=== PATIENT | female | born 1980 | race Caucasian/White ===

== ENCOUNTER 2020-02-28 09:27 | Outpatient (REF) | payer OTHER, SELFPAY ==
[2020-02-28 10:13] LABS: MANUAL DIFF FLAG NO
[2020-02-28 10:34] LABS: Basophils Absolute Auto 0.1 X10*3/uL (0.0-0.2); Basophils Percent Auto 0.7 % (0-2); Eosinophils Absolute Auto 0.1 X10*3/uL (0.0-0.4); Eosinophils Percent Auto 1.5 % (0-4); Hematocrit 42.1 % (37-47); Hemoglobin 13.8 g/dl (12.0-16.0); Imm Gran Abs Auto 0.03 X10*3/uL (0.00-0.03); Imm Gran Pct Auto 0.4 % (0.0-0.4); Lymphocytes Absolute Auto 2.4 X10*3/uL (1.2-4.9); Lymphocytes Percent Auto 29.8 % (20-40); Mean Corpuscular HGB Conc 32.8 g/dl (31.0-35.0); Mean Corpuscular Hemoglobin 29.7 pg (27.0-33.0); Mean Corpuscular Volume 90.7 fL (80-98); Mean Platelet Volume 10.5 fL (9.4-12.3); Monocytes Absolute Auto 0.7 X10*3/uL (0.1-1.2); Monocytes Percent Auto 8.7 % (2-11); Neutrophils Absolute Auto 4.7 X10*3/uL (2.0-8.3); Neutrophils Percent Auto 58.9 % (45-73); Platelet Count 363 X10*3/uL (160-400); Red Blood Count 4.64 X10*6/uL (4.20-5.50); Red Cell Distribution Width 12.1 % (11.0-16.0)
[2020-02-28 11:17] LABS: C Reactive Protein 1.15 mg/dL (< or = 0.50); Rheumatoid Factor < 15.0 IU/mL (<15.0)
[2020-02-28 11:31] LABS: Erythrocyte Sedimentation Rate 11 MM/HR (0-20)
[2020-02-28 11:32] LABS: TSH reflex Free T4 1.56 mIU/mL (0.32-4.0)
[2020-03-01 13:42] LABS: Lyme Abs Screen <0.90 index
[2020-03-01 22:12] LABS: Anti Nuclear Antibody Screen POSITIVE (NEGATIVE); Anti Nuclear Antibody Titer 1:40 titer
== END 2020-02-28 09:28 | disposition home or self-care (01) ==
LOC: HO.LAB 09:27
PROVIDERS: Visit Provider Internal Medicine
DX: R79.82 Elevated C-reactive protein (CRP) (principal); M25.50 Pain in unspecified joint; R53.83 Other fatigue
CPT/HCPCS: 36415; 84443; 85025; 85652; 86038; 86039; 86140; 86431; 86618

== ENCOUNTER 2020-07-07 14:11 | Outpatient (REF) | payer OTHER, SELFPAY ==
[2020-07-07 15:20] LABS: MANUAL DIFF FLAG NO
[2020-07-07 15:26] LABS: Basophils Absolute Auto 0.1 X10*3/uL (0.0-0.2); Basophils Percent Auto 0.7 % (0-2); Eosinophils Absolute Auto 0.1 X10*3/uL (0.0-0.4); Eosinophils Percent Auto 1.2 % (0-4); Hematocrit 42.1 % (37-47); Hemoglobin 13.9 g/dl (12.0-16.0); Imm Gran Abs Auto 0.02 X10*3/uL (0.00-0.03); Imm Gran Pct Auto 0.2 % (0.0-0.4); Lymphocytes Absolute Auto 1.9 X10*3/uL (1.2-4.9); Lymphocytes Percent Auto 22.1 % (20-40); Mean Corpuscular Hemoglobin 29.7 pg (27.0-33.0); Mean Platelet Volume 10.1 fL (9.4-12.3); Monocytes Absolute Auto 0.8 X10*3/uL (0.1-1.2); Neutrophils Absolute Auto 5.8 X10*3/uL (2.0-8.3); Neutrophils Percent Auto 66.8 % (45-73); Platelet Count 429 X10*3/uL (160-400); Red Blood Count 4.68 X10*6/uL (4.20-5.50); Red Cell Distribution Width 12.4 % (11.0-16.0); White Blood Count 8.7 X10*3/uL (4.8-10.8)
[2020-07-07 15:51] LABS: Alanine Aminotransferase 38 U/L (0-31); Albumin Level 4.2 g/dL (3.5-5.0); Alkaline Phosphatase 88 U/L (39-117); Anion Gap 10 (12-20); Aspartate Amino Transferase 19 U/L (5-31); Bilirubin Total 0.3 mg/dL (0.0-1.0); Blood Urea Nitrogen 9 mg/dL (9-16); C Reactive Protein 1.06 mg/dL (< or = 0.50); Calcium 9.4 mg/dL (8.4-10.2); Carbon Dioxide 28 mmol/L (22-29); Chloride 103 mmol/L (96-108); Estimated Glomerular Filt Rate > 60; Glucose Random 103 mg/dL (60-115); Potassium 4.4 mmol/L (3.3-5.1); Rheumatoid Factor < 15.0 IU/mL (<15.0); Sodium 137 mmol/L (135-145); Total Protein 7.3 g/dL (6.5-8.0)
[2020-07-07 16:00] LABS: Erythrocyte Sedimentation Rate 12 MM/HR (0-20)
[2020-07-07 16:11] LABS: Thyroid Stimulating Hormone 1.42 uIU/mL (0.32-4.0)
[2020-07-08 05:17] LABS: Thyroglobulin Antibodies <1 IU/mL (< or = 1); Thyroid Peroxidase Antibodies 1 IU/mL (<9)
[2020-07-08 12:51] LABS: Complement C3 141 mg/dL (83-193)
[2020-07-08 13:36] LABS: Beta-2 Microglobulin, Serum 1.06 mg/L (< OR = 2.51)
[2020-07-08 14:02] LABS: Anti DNA DS Antibody <1 IU/mL; Antibody to SS-A Antigen <1.0 NEG AI (<1.0 NEG); Antibody to SS-B Antigen <1.0 NEG AI (<1.0 NEG); SM/Ribonucleoprotein Ab <1.0 NEG AI (<1.0 NEG); Scleroderma 70 Antibody <1.0 NEG AI (<1.0 NEG); Smith Protein <1.0 NEG AI (<1.0 NEG)
[2020-07-08 14:52] LABS: PTT (LAC) Screen 31 sec (< OR = 40)
[2020-07-08 15:36] LABS: Cyclic Citrullinated Peptide <16 UNITS
[2020-07-13 18:17] LABS: Cardiolipin IgG Ab <14 GPL; Cardiolipin IgM Ab <12 MPL
== END 2020-07-07 14:12 | disposition home or self-care (01) ==
LOC: HO.LAB 14:11
PROVIDERS: PCP Internal Medicine; Visit Provider Student in an Organized Health Care Education/Training Program
DX: R76.8 Other specified abnormal immunological findings in serum (principal); M25.50 Pain in unspecified joint
CPT/HCPCS: 36415; 80053; 82232; 84443; 85025; 85597; 85613; 85652; 85730; 86140; 86147; 86160; 86200; 86225; 86235; 86376; 86431; 86800

== ENCOUNTER 2020-07-13 16:20 | Outpatient (REF) | payer OTHER, SELFPAY ==
[2020-07-13 17:19] LABS: Glucose Urine UA NEG (NEG); Leukocyte Esterase Urine NEG (NEG); Nitrite Urine NEG (NEG); Specific Gravity - Urine 1.025 (1.005-1.025); Urine Blood NEG (NEG); Urine Ketones NEG (NEG); Urine Protein NEG (NEG-TRACE)
[2020-07-13 17:40] LABS: Appearance Urine CLEAR; Color Urine YELLOW
[2020-07-13 17:55] LABS: Bacteria Urine 1+ /LPF; Mucus Urine 2+ /LPF; Squamous Epithelial Cell Urine 1+ /LPF
== END 2020-07-13 16:21 | disposition home or self-care (01) ==
LOC: HO.LAB 16:20
PROVIDERS: PCP Internal Medicine; Visit Provider Student in an Organized Health Care Education/Training Program
DX: R76.8 Other specified abnormal immunological findings in serum (principal)
CPT/HCPCS: 81001

== ENCOUNTER → 2020-07-28 10:45 | Outpatient (BNVA) | payer OTHER, SELFPAY | PROVIDERS: Visit Provider Student in an Organized Health Care Education/Training Program ==

== ENCOUNTER 2021-07-02 14:53 | Emergency (ER) | payer OTHER, SELFPAY ==
[2021-07-02 15:02] VITALS: BP 141/100; PULSE 95; RESP 16; TEMP 36.9; O2SAT 98; BMI 25.6
[2021-07-02 15:57] LABS: MANUAL DIFF FLAG NO
[2021-07-02 15:58] LABS: Basophils Absolute Auto 0.1 X10*3/uL (0.0-0.2); Basophils Percent Auto 0.9 % (0-2); Eosinophils Absolute Auto 0.2 X10*3/uL (0.0-0.4); Eosinophils Percent Auto 2.6 % (0-4); Hemoglobin 11.9 g/dl (12.0-16.0); Imm Gran Abs Auto 0.03 X10*3/uL (0.00-0.03); Imm Gran Pct Auto 0.4 % (0.0-0.4); Lymphocytes Absolute Auto 2.1 X10*3/uL (1.2-4.9); Mean Corpuscular HGB Conc 32.2 g/dl (31.0-35.0); Mean Corpuscular Volume 90.2 fL (80.0-98.0); Monocytes Absolute Auto 0.9 X10*3/uL (0.1-1.2); Monocytes Percent Auto 11.8 % (2-11); Neutrophils Absolute Auto 4.3 x10*3/uL (2.0-8.3); Neutrophils Percent Auto 56.3 % (45-73); Platelet Count 327 X10*3/uL (160-400); Red Cell Distribution Width 12.6 % (11.0-16.0); White Blood Count 7.6 X10*3/uL (4.8-10.8)
--- NOTE | 2021-07-02 15:58 | ED.FEMALEGU ---
HPI - Female Genitourinary General Chief complaint: Urogenital-Female Stated complaint: vaginal issues Time Seen by Provider: 07/02/21 15:11 Source: patient Mode of arrival: ambulatory Limitations: no limitations History of Present Illness HPI Narrative: 41-year-old female previously healthy here with reports of vaginal bleeding since yesterday. Patient tells me she had some slight bleeding which chart yesterday. Today her bleeding was worse. Bleeding is heavy, bright red with clots. Patient is changing her pads every 1 hour. There is some pelvic discomfort with bleeding. No nausea, vomiting, chills, urinary symptoms. Patient tells me she discontinued oral control pills March. She is not currently sexually active. She reports no concern for STD exposure. She is not on any anticoagulation Related Data Home Medications Medication Instructions Recorded Confirmed norethindrone 1 mg-ethinyl 1 tab PO DAILY 02/27/20 02/25/21 estradiol 20 mcg (21)-iron 75 mg (7) tablet (Loestrin Fe 05/19 (28-Day)) magnesium 200 mg tablet 300 mg PO DAILY tab 09/29/20 02/25/21 Previous Rx's Medication Instructions Recorded quetiapine 25 mg tablet 25 mg PO BEDTIME 90 Days #90 tab 02/08/21 bupropion HCl 300 mg 24 hr tablet, 300 mg PO QAM #90 tab 04/19/21 extended release lorazepam 0.5 mg tablet 0.5 mg PO TID PRN 30 Days #90 tab 05/16/21 Allergies Allergy/AdvReac Type Severity Reaction Status Date / Time No Known Allergies Allergy Verified 02/25/21 00:02 [No Known Allergies*] Review of Systems Review of Systems: Yes all other systems are reviewed and are negative Constitutional: Constitutional: Reports no additional constitutional complaints, Denies body ache(s), Denies chills, Denies fever(s), Denies headache(s) and Denies weakness Eyes: Eyes: Reports no additional eye complaints and Denies change in vision ENT: Reports system reviewed and no additional complaints, except as documented, Denies dizziness, Denies headache(s), Denies nasal congestion, Denies nasal discharge and Denies neck pain Cardiovascular: Cardiovascular: Reports no additional cardiovascular complaints, Denies chest pain, Denies leg edema and Denies dyspnea Respiratory: Respiratory: Reports no additional respiratory complaints, Denies cough and Denies dyspnea Gastrointestinal: Gastrointestinal: Reports no additional gastrointestinal complaints, Denies abdominal pain, Denies diarrhea, Denies nausea and Denies vomiting Genitourinary: Genitourinary: Reports no additional female genitourinary complaints, Reports abnormal vaginal bleeding, Reports pelvic pain and Denies urinary incontinence Musculoskeletal: Musculoskeletal: Reports no additional musculoskeletal complaints, Denies back pain, Denies arthralgias, Denies joint swelling, Denies neck pain, Denies numbness and Denies tingling Integumentary/Breasts: Skin/Breast: Reports system reviewed and no additional complaints, except as docu and Denies rash Neurologic: Reports system reviewed and no additional complaints, except as documented, Denies Abnormal speech present, Denies dizziness, Denies headache(s), Denies numbness, Denies tingling and Denies weakness PMFSH Past Medical History Attestation statement: The following information was validated with the patient. Source: old records reviewed and nursing notes reviewed Medical History Anxiety Arthralgia Depression Elevated C-reactive protein (CRP) Fatigue Insomnia No history of diphtheria, pertussis, and tetanus (DPT) vaccination Overweight (BMI 25.0-29.9) Positive MARIAN (antinuclear antibody) Surgical History No significant past surgical history Family History Family History Father No problems noted. 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 Exam Vital Signs: Vital Signs: Last Vital Signs Temp 98.4 F 07/02/21 15:02 Pulse 95 07/02/21 15:02 Resp 16 07/02/21 15:02 BP 141/100 H 07/02/21 15:02 Pulse Ox 98 03/05/22 15:02 BMI result Body Mass Index 25.6 Const: General: cooperative, healthy appearing, comfortable and no acute distress Orientation/consciousness: patient oriented x3 Limitations: no limitations HENMT: Head: Yes normal to inspection Ears: hearing grossly normal bilaterally General nose exam: Normal external nose present Face and sinus: Yes normal facial exam Mouth: Normal oral and palatal mucosa present Throat: Yes posterior oropharynx normal Eyes: General: appearance normal, both eyes and all related structures Pupils: Equal, round and reactive pupils present Neck: Neck: Yes normal visual inspection Chest: Chest palpation & inspection: normal inspection of the chest Resp: Effort & Inspection: normal respiratory effort Auscultation: clear to auscultation bilaterally Cardio: Rate: regular rate Rhythm: regular rhythm Peripheral pulses: Peripheral pulses 2+ throughout GI: Inspection: Yes normal to inspection Palpation (GI): Soft to palpation and nontender Auscultation: normal bowel sounds : Other: Courtney galeana slight bleeding noted-no clots Speculum Exam - Vagina: normal appearance of the vagina Speculum Exam - Cervix: normal appearance of the cervix Bimanual exam- vagina & uterus: normal bimanual exam Bimanual Exam- Adnexa, other: normal adnexae Back/Spine/Pelvis: Thoracic/Lumbar Spine: thoracic and lumbar spine normal to inspection Skin: General skin exam: no rashes or lesions noted Neuro: General: patient oriented x3, no focal motor deficits and normal sensation to monofilament Cranial nerves: Yes Equal, round and reactive pupils present Cognition (Neuro): normal cognition Speech: No Abnormal speech present Gait exam (Neuro): Normal gait present Motor exam (neuro): 5/5 motor strength present throughout Extrem: General: Yes normal to inspection Course Course Course Narrative: 41-year-old female here with heavy vaginal bleeding with clots, changing 1 pad every 1 hour since this morning. Abdomen is soft and nontender. Will need labs, UA, pelvic exam. 1820-hemoglobin x2 stable. Pelvic exam shows a mild amount of bleeding with no obvious clots. Patient tells me her bleeding seems to be improved as she has been here in the emergency department. Will discharge home with follow-up with gynecology. Reviewed worrisome signs and symptoms of when to return to the emergency department. Comfortable discharge home. MDM - Female Genitourinary MDM Narrative Medical decision making narrative: Dysmenorrhea, metorrhagia, dysfunctional uterine bleeding, Medical Records Attestation: I reviewed the patient's medical records. Lab Data Attestation: I reviewed the patient's lab results. Result diagrams: 07/02/21 18:00 07/02/21 15:51 Labs: Lab Results 07/02/21 07/02/21 07/02/21 Range/Units 15:51 15:51 15:51 WBC 7.6 (4.8-10.8) X10*3/uL RBC 4.10 L (4.20-5.50) X10*6/uL Hgb 11.9 L (12.0-16.0) g/dl Hct 37.0 (37.0-47.0) % MCV 90.2 (80.0-98.0) fL MCH 29.0 (27.0-33.0) pg MCHC 32.2 (31.0-35.0) g/dl RDW 12.6 (11.0-16.0) % Plt Count 327 (160-400) X10*3/uL MPV 10.0 (9.4-12.3) fL Immature Gran % (Auto) 0.4 (0.0-0.4) % Neut % (Auto) 56.3 (45-73) % Lymph % (Auto) 28.0 (20-40) % [place] % (Auto) 11.8 H (2-11) % Eos % (Auto) 2.6 (0-4) % Baso % (Auto) 0.9 (0-2) % Lymph # (Auto) 2.1 (1.2-4.9) X10*3/uL [place] # (Auto) 0.9 (0.1-1.2) X10*3/uL Eos # (Auto) 0.2 (0.0-0.4) X10*3/uL Baso # (Auto) 0.1 (0.0-0.2) X10*3/uL Abs Immat Gran (auto) 0.03 (0.00-0.03) X10*3/uL Absolute Neuts (auto) 4.3 (2.0-8.3) x10*3/uL Absolute Nucleated RBC 0.000 (0.0-0.012) X10*3/uL Nucleated RBC % (auto) 0.0 (0.0-0.2) /100WBC PT 11.3 (9.9-13.0) SEC INR 1.0 (0.9-1.1) Sodium 140 (135-145) mmol/L Potassium 4.1 (3.3-5.1) mmol/L Chloride 109 H (96-108) mmol/L Carbon Dioxide 27 (22-29) mmol/L Anion Gap 8 L (12-20) BUN 10 (9-16) mg/dL Creatinine 0.81 (0.5-1.4) mg/dL Estim Creat Clear Calc 91.5 Estimated GFR > 60 Random Glucose 93 (60-115) mg/dL Calcium 8.9 (8.4-10.2) mg/dL Total Bilirubin < 0.2 (0.0-1.0) mg/dL Direct Bilirubin < 0.2 (0.0-0.5) mg/dL AST 12 (5-31) U/L ALT 12 (0-31) U/L Alkaline Phosphatase 73 (39-117) U/L Total Protein 6.4 L (6.5-8.0) g/dL Albumin 3.8 (3.5-5.0) g/dL Beta HCG, Quant mIU/mL Urine Color Urine Appearance Urine pH (5.0-8.0) Ur Specific [place] (1.005-1.025) Urine Protein (NEG-TRACE) MG/DL Urine Glucose (UA) (NEG) MG/DL Urine Ketones (NEG) MG/DL Urine Blood (NEG) Urine Nitrite (NEG) Ur Leukocyte Esterase (NEG) Urine RBC (0) /HPF Urine WBC (0-4) /HPF Ur Squamous Epith Cells /LPF Urine Bacteria /LPF Urine Test (NEGATIVE) 07/02/21 07/02/21 07/02/21 Range/Units 15:51 16:37 16:37 WBC (4.8-10.8) X10*3/uL RBC (4.20-5.50) X10*6/uL Hgb (12.0-16.0) g/dl Hct (37.0-47.0) % MCV (80.0-98.0) fL MCH (27.0-33.0) pg MCHC (31.0-35.0) g/dl RDW (11.0-16.0) % Plt Count (160-400) X10*3/uL MPV (9.4-12.3) fL Immature Gran % (Auto) (0.0-0.4) % Neut % (Auto) (45-73) % Lymph % (Auto) (20-40) % [place] % (Auto) (2-11) % Eos % (Auto) (0-4) % Baso % (Auto) (0-2) % Lymph # (Auto) (1.2-4.9) X10*3/uL [place] # (Auto) (0.1-1.2) X10*3/uL Eos # (Auto) (0.0-0.4) X10*3/uL Baso # (Auto) (0.0-0.2) X10*3/uL Abs Immat Gran (auto) (0.00-0.03) X10*3/uL Absolute Neuts (auto) (2.0-8.3) x10*3/uL Absolute Nucleated RBC (0.0-0.012) X10*3/uL Nucleated RBC % (auto) (0.0-0.2) /100WBC PT (9.9-13.0) SEC INR (0.9-1.1) Sodium (135-145) mmol/L Potassium (3.3-5.1) mmol/L Chloride (96-108) mmol/L Carbon Dioxide (22-29) mmol/L Anion Gap (12-20) BUN (9-16) mg/dL Creatinine (0.5-1.4) mg/dL Estim Creat Clear Calc Estimated GFR Random Glucose (60-115) mg/dL Calcium (8.4-10.2) mg/dL Total Bilirubin (0.0-1.0) mg/dL Direct Bilirubin (0.0-0.5) mg/dL AST (5-31) U/L ALT (0-31) U/L Alkaline Phosphatase (39-117) U/L Total Protein (6.5-8.0) g/dL Albumin (3.5-5.0) g/dL Beta HCG, Quant < 2 mIU/mL Urine Color YELLOW Urine Appearance HAZY Urine pH 6.5 (5.0-8.0) Ur Specific [place] 1.015 (1.005-1.025) Urine Protein TRACE (NEG-TRACE) MG/DL Urine Glucose (UA) NEG (NEG) MG/DL Urine Ketones NEG (NEG) MG/DL Urine Blood 3+ H (NEG) Urine Nitrite NEG (NEG) Ur Leukocyte Esterase NEG (NEG) Urine RBC 50-75 H (0) /HPF Urine WBC 0-2 (0-4) /HPF Ur Squamous Epith Cells TRACE /LPF Urine Bacteria NONE /LPF Urine Test NEGATIVE (NEGATIVE) 07/02/21 Range/Units 18:00 WBC 8.5 (4.8-10.8) X10*3/uL RBC 4.10 L (4.20-5.50) X10*6/uL Hgb 12.0 (12.0-16.0) g/dl Hct 37.1 (37.0-47.0) % MCV 90.5 (80.0-98.0) fL MCH 29.3 (27.0-33.0) pg MCHC 32.3 (31.0-35.0) g/dl RDW 12.5 (11.0-16.0) % Plt Count 322 (160-400) X10*3/uL MPV 9.9 (9.4-12.3) fL Immature Gran % (Auto) 0.2 (0.0-0.4) % Neut % (Auto) 53.3 (45-73) % Lymph % (Auto) 31.3 (20-40) % [place] % (Auto) 12.0 H (2-11) % Eos % (Auto) 2.5 (0-4) % Baso % (Auto) 0.7 (0-2) % Lymph # (Auto) 2.7 (1.2-4.9) X10*3/uL [place] # (Auto) 1.0 (0.1-1.2) X10*3/uL Eos # (Auto) 0.2 (0.0-0.4) X10*3/uL Baso # (Auto) 0.1 (0.0-0.2) X10*3/uL Abs Immat Gran (auto) 0.02 (0.00-0.03) X10*3/uL Absolute Neuts (auto) 4.5 (2.0-8.3) x10*3/uL Absolute Nucleated RBC 0.000 (0.0-0.012) X10*3/uL Nucleated RBC % (auto) 0.0 (0.0-0.2) /100WBC PT (9.9-13.0) SEC INR (0.9-1.1) Sodium (135-145) mmol/L Potassium (3.3-5.1) mmol/L Chloride (96-108) mmol/L Carbon Dioxide (22-29) mmol/L Anion Gap (12-20) BUN (9-16) mg/dL Creatinine (0.5-1.4) mg/dL Estim Creat Clear Calc Estimated GFR Random Glucose (60-115) mg/dL Calcium (8.4-10.2) mg/dL Total Bilirubin (0.0-1.0) mg/dL Direct Bilirubin (0.0-0.5) mg/dL AST (5-31) U/L ALT (0-31) U/L Alkaline Phosphatase (39-117) U/L Total Protein (6.5-8.0) g/dL Albumin (3.5-5.0) g/dL Beta HCG, Quant mIU/mL Urine Color Urine Appearance Urine pH (5.0-8.0) Ur Specific [place] (1.005-1.025) Urine Protein (NEG-TRACE) MG/DL Urine Glucose (UA) (NEG) MG/DL Urine Ketones (NEG) MG/DL Urine Blood (NEG) Urine Nitrite (NEG) Ur Leukocyte Esterase (NEG) Urine RBC (0) /HPF Urine WBC (0-4) /HPF Ur Squamous Epith Cells /LPF Urine Bacteria /LPF Urine Test (NEGATIVE) Discharge Plan Discharge Clinical Impression: Menorrhagia Patient Disposition: Home, Self-Care Instructions: Menorrhagia (ED) Additional Instructions: Return for severe bleeding, pain Follow-up with your staking technician Sunday Prescriptions: No Action bupropion HCl 300 mg tablet extended release 24 hr 300 mg PO QAM Qty: 90 0RF lorazepam 0.5 mg tablet 0.5 mg PO TID PRN (Reason: anxiety) 30 Days Qty: 90 0RF magnesium 200 mg tablet 300 mg PO DAILY 0RF norethindrone-e.estradiol-iron [Loestrin Fe 05/19 (28-Day)] 1 mg-20 mcg (21)/75 mg (7) tablet 1 tab PO DAILY 0RF quetiapine 25 mg tablet 25 mg PO BEDTIME 90 Days Qty: 90 3RF Interventions: ED Discharge Assessment Last Done: 07/02/21 18:20 Discharge Date/Time: 07/02/21 18:20
[2021-07-02 16:08] LABS: Prothrombin Time 11.3 SEC (9.9-13.0)
[2021-07-02 16:20] LABS: Alanine Aminotransferase 12 U/L (0-31); Albumin Level 3.8 g/dL (3.5-5.0); Alkaline Phosphatase 73 U/L (39-117); Anion Gap 8 (12-20); Aspartate Amino Transferase 12 U/L (5-31); Bilirubin Direct < 0.2 mg/dL (0.0-0.5); Bilirubin Total < 0.2 mg/dL (0.0-1.0); Blood Urea Nitrogen 10 mg/dL (9-16); Calcium 8.9 mg/dL (8.4-10.2); Carbon Dioxide 27 mmol/L (22-29); Chloride 109 mmol/L (96-108); Creatinine Clr Calc Pharmacy 91.5; Estimated Glomerular Filt Rate > 60; Glucose Random 93 mg/dL (60-115); HCG Quantitative < 2 mIU/mL; Potassium 4.1 mmol/L (3.3-5.1); Sodium 140 mmol/L (135-145); Total Protein 6.4 g/dL (6.5-8.0)
[2021-07-02 16:51] LABS: Appearance Urine HAZY; Color Urine YELLOW; Glucose Urine UA NEG (NEG); Leukocyte Esterase Urine NEG (NEG); Nitrite Urine NEG (NEG); PH 6.5 (5.0-8.0); Specific Gravity - Urine 1.015 (1.005-1.025); UACC Culture Trigger NO; Urine Blood 3+ (NEG); Urine Ketones NEG (NEG); Urine Protein TRACE MG/DL (NEG-TRACE)
[2021-07-02 16:56] LABS: UPreg QC Valid YES; Urine Pregnancy NEGATIVE (NEGATIVE)
[2021-07-02 17:07] LABS: RBC Urine 50-75 /HPF (0); Squamous Epithelial Cell Urine TRACE /LPF; WBC Urine 0-2 /HPF (0-4)
[2021-07-02 18:04] LABS: MANUAL DIFF FLAG NO
[2021-07-02 18:05] LABS: Basophils Absolute Auto 0.1 X10*3/uL (0.0-0.2); Basophils Percent Auto 0.7 % (0-2); Eosinophils Absolute Auto 0.2 X10*3/uL (0.0-0.4); Eosinophils Percent Auto 2.5 % (0-4); Hematocrit 37.1 % (37.0-47.0); Imm Gran Abs Auto 0.02 X10*3/uL (0.00-0.03); Imm Gran Pct Auto 0.2 % (0.0-0.4); Lymphocytes Absolute Auto 2.7 X10*3/uL (1.2-4.9); Lymphocytes Percent Auto 31.3 % (20-40); Mean Corpuscular HGB Conc 32.3 g/dl (31.0-35.0); Mean Corpuscular Hemoglobin 29.3 pg (27.0-33.0); Mean Corpuscular Volume 90.5 fL (80.0-98.0); Mean Platelet Volume 9.9 fL (9.4-12.3); Neutrophils Absolute Auto 4.5 x10*3/uL (2.0-8.3); Neutrophils Percent Auto 53.3 % (45-73); Platelet Count 322 X10*3/uL (160-400); Red Cell Distribution Width 12.5 % (11.0-16.0); White Blood Count 8.5 X10*3/uL (4.8-10.8)
== END 2021-07-02 18:20 | disposition home or self-care (01) ==
PROVIDERS: Nurse Practitioner Family; Emergency Provider Emergency Medicine Emergency Medical Services; PCP Internal Medicine
DX: N92.0 Excessive and frequent menstruation with regular cycle (principal); R10.2 Pelvic and perineal pain
CPT/HCPCS: 36415; 80048; 80076; 81001; 81025; 84702; 85025; 85610; 99284

== ENCOUNTER 2021-09-08 17:37 | Emergency (ER) | payer OTHER, SELFPAY | END 2021-09-08 22:20 | disposition left against medical advice (07) | PROVIDERS: Emergency Provider Emergency Medicine; PCP Internal Medicine | DX: R10.30 Lower abdominal pain, unspecified (principal) ==

== ENCOUNTER → 2022-02-10 13:50 | Outpatient (REF) | payer OTHER, SELFPAY ==
--- NOTE | 2022-02-10 14:00 | ECG_ITS ---
Test Reason : z01.818 Blood Pressure : / mmHG Vent. Rate : 080 BPM Atrial Rate : 080 BPM P-R Int : 150 ms QRS Dur : 082 ms QT Int : 396 ms P-R-T Axes : 066 078 063 degrees QTc Int : 456 ms Normal sinus rhythm with sinus arrhythmia Normal ECG When compared with ECG of 18-FEB-2019 02:07, No significant change was found Referred By: John Paul Foley Electronically Signed By:NITO BROOKS MD
[2022-02-10 14:01] LABS: MANUAL DIFF FLAG NO
[2022-02-10 14:28] LABS: Basophils Absolute Auto 0.1 X10*3/uL (0.0-0.2); Basophils Percent Auto 0.9 % (0-2); Eosinophils Absolute Auto 0.1 X10*3/uL (0.0-0.4); Eosinophils Percent Auto 1.7 % (0-4); Hematocrit 41.5 % (37.0-47.0); Hemoglobin 13.3 g/dl (12.0-16.0); Imm Gran Abs Auto 0.02 X10*3/uL (0.00-0.03); Imm Gran Pct Auto 0.3 % (0.0-0.4); Lymphocytes Absolute Auto 2.4 X10*3/uL (1.2-4.9); Lymphocytes Percent Auto 32.8 % (20-40); Mean Corpuscular Hemoglobin 28.1 pg (27.0-33.0); Mean Corpuscular Volume 87.7 fL (80.0-98.0); Mean Platelet Volume 10.1 fL (9.4-12.3); Monocytes Absolute Auto 0.8 X10*3/uL (0.1-1.2); Monocytes Percent Auto 10.4 % (2-11); Neutrophils Percent Auto 53.9 % (45-73); Platelet Count 394 X10*3/uL (160-400); Red Blood Count 4.73 X10*6/uL (4.20-5.50); Red Cell Distribution Width 13.1 % (11.0-16.0); White Blood Count 7.4 X10*3/uL (4.8-10.8)
[2022-02-10 14:54] LABS: Alanine Aminotransferase 16 U/L (0-31); Albumin Level 4.4 g/dL (3.5-5.0); Alkaline Phosphatase 71 U/L (39-117); Anion Gap 14 (12-20); Aspartate Amino Transferase 16 U/L (5-31); Bilirubin Total 0.3 mg/dL (0.0-1.0); Blood Urea Nitrogen 9 mg/dL (9-16); Calcium 9.3 mg/dL (8.4-10.2); Carbon Dioxide 28 mmol/L (22-29); Chloride 103 mmol/L (96-108); Estimated Glomerular Filt Rate 59; Glucose Random 80 mg/dL (60-115); Potassium 4.5 mmol/L (3.3-5.1); Sodium 140 mmol/L (135-145); Total Protein 7.5 g/dL (6.5-8.0)
== END ==
LOC: HO.CARD 13:50
PROVIDERS: PCP Internal Medicine; Visit Provider Internal Medicine
DX: Z01.818 Encounter for other preprocedural examination (principal); H50.9 Unspecified strabismus
CPT/HCPCS: 36415; 80053; 85025; 93005

== ENCOUNTER 2022-02-15 11:52 | Day surgery (SDC) | payer OTHER, SELFPAY ==
[2022-02-13 07:46] VITALS: BMI 25.7
--- NOTE | 2022-02-14 10:16 | HO.ANESPROP2 ---
Documented by User: Marianne Marx NP 02/14/22 10:17 HPI - Anesthesia Eval Consult details Narrative: 41yo F for Bilateral medial and Left inferior Eye Muscle rectus Resection PCP cleared [facility] Active Problems Active Problems: All Active Problems (Updated 02/10/22 @ 13:37 by John Paul Foley MD) Strabismus (Acute) Preoperative examination (Acute) Annual physical exam (Acute) Overweight (BMI 25.0-29.9) (Acute) Positive MARIAN (antinuclear antibody) (Acute) Elevated C-reactive protein (CRP) (Acute) Depression (Acute) Insomnia (Acute) Anxiety (Acute) Arthralgia (Acute) Fatigue (Acute) Past Medical History Medical History Anxiety Arthralgia Depression Elevated C-reactive protein (CRP) Fatigue Insomnia No history of diphtheria, pertussis, and tetanus (DPT) vaccination Overweight (BMI 25.0-29.9) Positive MARIAN (antinuclear antibody) Family History Family History Father No problems noted. Mother Chronic mental illness Family/Other FH: mental illness Other Mental health problem Surgical History Surgical History No significant past surgical history Social History Social History Housing: House Alcohol intake: current Alcohol intake frequency: holidays/special occasions only Patient Tobacco Use Status: Former Tobacco user Quit Date: 2015 Tobacco use type: Cigarette Second Hand Smoke Exposure: Yes Use of substances other than those prescribed or required for medical reasons: No Are you DNR?: No Advance Directives: No Advance Directives Information Provided: Yes service: No Current occupational status: employed 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 Rate : 080 BPM ? ? Atrial Rate : 080 BPM ?? P-R Int : 150 ms? QRS Dur : 082 ms ? ? QT Int : 396 ms ? ? ? P-R-T Axes : 066 078 063 degrees ?? QTc Int : 456 ms ? Normal sinus rhythm with sinus arrhythmia Normal ECG When compared with ECG of 18-FEB-2019 02:07, No significant change was found Assessment and Plan Assessment Anesthesia Assessment: Chart Reviewed Documented by User: Maddy Schwarz MD 02/15/22 15:04 PMFSH Past Medical History Medical History Anxiety Arthralgia Depression Elevated C-reactive protein (CRP) Fatigue Insomnia No history of diphtheria, pertussis, and tetanus (DPT) vaccination Overweight (BMI 25.0-29.9) Positive MARIAN (antinuclear antibody) Family History Family History Father No problems noted. Mother Chronic mental illness Family/Other FH: mental illness Other Mental health problem Family history of problems with anesthesia: No Surgical History Surgical History No significant past surgical history History of Problems with Anesthesia: No Social History Social History Housing: House Alcohol intake: current Alcohol intake frequency: holidays/special occasions only Patient Tobacco Use Status: Former Tobacco user Quit Date: 2015 Tobacco use type: Cigarette Second Hand Smoke Exposure: Yes Use of substances other than those prescribed or required for medical reasons: No Are you DNR?: No Advance Directives: No Advance Directives Information Provided: Yes service: No Current occupational status: employed 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 Cognitive needs: No Hearing needs: No Vision needs: Yes Meds Allergies Allergy/AdvReac Type Severity Reaction Status Date / Time No Known Allergies Allergy Verified 02/10/22 13:32 [No Known Allergies*] Home Medications Medication Instructions Recorded Confirmed Last Taken Type magnesium 200 mg tablet 300 mg PO DAILY 09/29/20 02/10/22 Unknown History Exam Airway Mallampati Class: II TM Dist: >3cm Neck ROM: Full Heart: rrr Lungs: cta Assessment and Plan Assessment Anesthesia Assessment: Anesthesia Plan Discussed and Chart Reviewed Final Anesthetic Review Family History of Problems with Anesthesia: No History of Problems with Anesthesia: No NPO: Yes ASA Class: II Final Preanesthetic Review: No Changes in Pt Med Stat, Meds/Allgs Chart Reviewed and Consent Obtained/Reviewed Patient Risk: Intermediate Procedure Risk: Intermediate Anesthetic Plan Anesthetic Plan: GA Disposition: Standard PACU
[2022-02-15] VITALS (7 sets, daily range): BP systolic 134–151; BP diastolic 84–102; PULSE 98–111; RESP 14–18; TEMP 36.1–36.6; O2SAT 97–100
[2022-02-15] MEDS: Lactated Ringers 1,000 ML 100 ML IVCONT (13:01)
[2022-02-15 13:07] LABS: UPreg QC Valid YES; Urine Pregnancy NEGATIVE (NEGATIVE)
--- NOTE | 2022-02-15 16:13 | HO.OPHTHAL ---
Ophthalmology Operative Note Date of Service: 02/15/22 Narrative: Diagnoses 1. Esotropia 2. Left hypotropia. Procedures 1. Bilateral medial rectus recessions of 6 mm 2. Recession of left inferior rectus [address] Soler anesthesia general complications none. The patient was brought to the operating room placed under general anesthesia. The patient's eyes were prepped and draped in the usual sterile ophthalmic fashion. A lid speculum was placed in the right eye and an incision was made at bare sclera in the inferior nasal fornix. The medial rectus muscle was hooked and secured with a double-armed Vicryl suture. The muscle was then disinserted the globe and reattached to a position 6 mm behind its original insertion using a hang back technique. Conjunctiva was closed with interrupted Vicryl suture sutures. An identical procedure was then performed on the left eye. The inferior rectus muscle on the left eye was then hooked and secured with a double-armed Vicryl suture. The muscle was then disinserted the globe and reattached to a position 3 mm behind its original insertion. Conjunctiva was closed with interrupted Vicryl sutures. The patient was then awoken from general anesthesia and discharged to postoperative recovery in good condition.
[2022-02-15] MEDS: ondansetron HCL 4 MG/2 ML VIAL IVPUSH (16:51)
[2022-02-15] MEDS: Tetracaine HCl/PF 0.5% Oph Sol 4 ML DROPS 1 DROP EYE-BOTH ×2 (16:51→17:34)
== END 2022-02-15 18:00 | disposition home or self-care (01) ==
PROVIDERS: Nurse Practitioner; PCP Internal Medicine; Visit Provider Ophthalmology
PROC: (CPT 67311; principal; 2022-02-15 13:40)
DX: H50.00 Unspecified esotropia (principal); H50.22 Vertical strabismus, left eye; H53.2 Diplopia; R79.82 Elevated C-reactive protein (CRP); R76.0 Raised antibody titer; E66.3 Overweight; Z68.25 Body mass index [BMI] 25.0-25.9, adult; F41.9 Anxiety disorder, unspecified; F32.9 Major depressive disorder, single episode, unspecified; Z79.899 Other long term (current) drug therapy; Z87.891 Personal history of nicotine dependence
CPT/HCPCS: 67311; 67314; 81025; J0131; J1100; J2250; J2405; J3010

== ENCOUNTER 2022-05-23 06:14 | Outpatient (REF) | payer OTHER, SELFPAY ==
[2022-05-23 06:18] LABS: MANUAL DIFF FLAG NO
[2022-05-23 07:32] LABS: Basophils Absolute Auto 0.1 X10*3/uL (0.0-0.2); Basophils Percent Auto 0.9 % (0-2); Eosinophils Absolute Auto 0.1 X10*3/uL (0.0-0.4); Eosinophils Percent Auto 1.6 % (0-4); Hematocrit 38.9 % (37.0-47.0); Hemoglobin 12.4 g/dl (12.0-16.0); Imm Gran Abs Auto 0.02 X10*3/uL (0.00-0.03); Imm Gran Pct Auto 0.2 % (0.0-0.4); Lymphocytes Absolute Auto 2.9 X10*3/uL (1.2-4.9); Lymphocytes Percent Auto 35.9 % (20-40); Mean Corpuscular HGB Conc 31.9 g/dl (31.0-35.0); Mean Corpuscular Volume 90.9 fL (80.0-98.0); Mean Platelet Volume 10.2 fL (9.4-12.3); Monocytes Absolute Auto 0.9 X10*3/uL (0.1-1.2); Monocytes Percent Auto 10.8 % (2-11); Neutrophils Absolute Auto 4.1 x10*3/uL (2.0-8.3); Neutrophils Percent Auto 50.6 % (45-73); Platelet Count 404 X10*3/uL (160-400); Red Blood Count 4.28 X10*6/uL (4.20-5.50); White Blood Count 8.2 X10*3/uL (4.8-10.8)
[2022-05-23 08:03] LABS: Alanine Aminotransferase 12 U/L (0-31); Albumin Level 3.9 g/dL (3.5-5.0); Alkaline Phosphatase 69 U/L (39-117); Anion Gap 12 (12-20); Aspartate Amino Transferase 11 U/L (5-31); Bilirubin Total 0.4 mg/dL (0.0-1.0); Blood Urea Nitrogen 8 mg/dL (9-16); Calcium 9.2 mg/dL (8.4-10.2); Carbon Dioxide 26 mmol/L (22-29); Chloride 105 mmol/L (96-108); Cholesterol 177 mg/dL; Estimated Glomerular Filt Rate > 60; Glucose Fasting 77 mg/dL (60-99); HDL Cholesterol 56 mg/dL; LDL Cholesterol Calculated 111 mg/dl; Potassium 4.4 mmol/L (3.3-5.1); Sodium 139 mmol/L (135-145); Total Protein 6.6 g/dL (6.5-8.0); Triglycerides 54 mg/dL
[2022-05-23 08:21] LABS: TSH reflex Free T4 3.29 uIU/mL (0.32-4.0); Vitamin D 25-OH Total 16.3 ng/mL (>30)
[2022-05-23 09:36] LABS: Appearance Urine Turbid; Color Urine Yellow; Glucose Urine UA Negative (Negative); Leukocyte Esterase Urine Moderate (2+) (Negative); Nitrite Urine Negative (Negative); PH 5.5 (5.0-9.0); UMIC TRIGGER UACC YES; Urine Blood Moderate (2+) (Negative); Urine Ketones Negative (Negative); Urine Protein 100 (2+) mg/dL (Neg-Trace)
[2022-05-23 09:53] LABS: Bacteria Urine 4+ (None Seen); Hyaline Casts Urine 0-2 /LPF (0-2); Squamous Epithelial Cell Urine >20 /HPF (0-2); UACC Culture Trigger YES; WBC Urine >50 /HPF (0-5)
== END 2022-05-23 06:15 | disposition home or self-care (01) ==
LOC: HO.LAB 06:14
PROVIDERS: PCP Internal Medicine; Visit Provider Internal Medicine
DX: Z00.00 Encounter for general adult medical examination without abnormal findings (principal); E55.9 Vitamin D deficiency, unspecified; R82.90 Unspecified abnormal findings in urine
CPT/HCPCS: 36415; 80053; 80061; 81001; 82306; 84443; 85025; 87086; 87088; 87186

== ENCOUNTER 2022-09-19 14:37 | Outpatient (REF) | payer OTHER, SELFPAY | END 2022-09-19 14:38 | disposition home or self-care (01) | LOC: HO.LAB 14:37 | PROVIDERS: Visit Provider Nurse Practitioner Family | DX: R30.0 Dysuria (principal) | CPT/HCPCS: 87086; 87088; 87147; 87186 ==

== ENCOUNTER → 2022-10-17 09:58 | Outpatient (BNVA) | payer OTHER, SELFPAY | PROVIDERS: PCP Internal Medicine; Visit Provider Nurse Practitioner Family | DX: N39.0 Urinary tract infection, site not specified (principal) | CPT/HCPCS: 51798 ==

== ENCOUNTER 2022-10-27 12:51 | Outpatient (REF) | payer OTHER, SELFPAY ==
--- NOTE | ~2022-10-27 | US_ITS ---
EXAMINATION: US RETROPERITONEAL COMPLETE (RENAL) CLINICAL INFORMATION: Urinary tract infection, site not specified. COMPARISON: None available. TECHNIQUE: Real-time imaging of the kidneys and bladder. FINDINGS: RIGHT KIDNEY: 11.5 x 3.7 x 5.2 cm (SAG x AP x TRV). No hydronephrosis. No renal calculi. Renal cortical thickness is normal. LEFT KIDNEY: 11.2 x 5.1 x 4.9 cm (SAG x AP x TRV). No hydronephrosis. No renal calculi. Renal cortical thickness is normal. Limited visualization due to bowel gas. BLADDER: Well distended. Unremarkable bladder. Bilateral ureteral jets are demonstrated. Prevoid bladder volume is 743 mL. Postvoid bladder volume is 87 mL. US/US retroperitoneal comp IMPRESSION: 1. No hydronephrosis. No renal calculi. 2. Postvoid bladder volume 87 mL.
== END 2022-10-27 12:52 | disposition home or self-care (01) ==
LOC: HO.HMGCX 12:51
PROVIDERS: PCP Internal Medicine; Visit Provider Nurse Practitioner Family
DX: N39.0 Urinary tract infection, site not specified (principal)
CPT/HCPCS: 76770

== ENCOUNTER 2022-11-13 11:04 | Outpatient (REF) | payer OTHER, SELFPAY ==
[2022-11-13 13:39] LABS: Appearance Urine Clear; Color Urine Dark Yellow; Glucose Urine UA Negative (Negative); Leukocyte Esterase Urine Moderate (2+) (Negative); Nitrite Urine Positive (Negative); Specific Gravity - Urine <= 1.005 (1.005-1.025); UMIC TRIGGER UACC YES; Urine Blood Negative (Negative); Urine Ketones Negative (Negative); Urine Protein Negative (Neg-Trace)
[2022-11-13 13:54] LABS: Bacteria Urine Trace (None Seen); Hyaline Casts Urine 0-2 /LPF (0-2); RBC Urine 0-2 /HPF (0-2); UACC Culture Trigger YES; WBC Urine 21-50 /HPF (0-5)
== END 2022-11-13 11:05 | disposition home or self-care (01) ==
LOC: HO.LAB 11:04
PROVIDERS: PCP Internal Medicine; Visit Provider Nurse Practitioner Family
DX: R30.0 Dysuria (principal)
CPT/HCPCS: 81001; 87086; 87088; 87186

== ENCOUNTER 2022-11-20 13:43 | Outpatient (AMB) | payer OTHER, SELFPAY ==
--- NOTE | 2022-11-20 13:50 | MHC.OFFVIS ---
Intake Intake Visit Reasons: 1m/US Intake Note: Patient presents for follow up visit recurrent uti/ultrasound (imaging 10/27) Urology Medications: none Blood Thinner: none PVR: 33ml's Area Secretary Required: No Accompanied by: Self / Same As Patient Allergies No Known Allergies [No Known Allergies*] Allergy (Verified 11/20/22 20:30) Medication List - Last Reconciled 11/20/22 by NICKI Elena ascorbic acid (vitamin C) 1 g PO DAILY 90 days bupropion HCl 300 mg PO QAM 90 days cholecalciferol (vitamin D3) 50 mcg PO DAILY cholecalciferol (vitamin D3) 50 mcg PO DAILY 90 days lorazepam 0.5 mg PO TID PRN 30 days methenamine hippurate 1 g PO DAILY 90 days quetiapine 25 mg PO BEDTIME 90 days HPI HPI Comments History of Present Illness Details Elyssa is a pleasant 42-year-old female patient of Dr. Foley. She has a past medical history of anxiety, depression, insomnia, positive MARIAN, and vitamin-D deficiency. She presents to the office today for follow-up. Of note, patient was seen approximately 1 month ago as a new patient for recurrent urinary tract infections at which time a retroperitoneal ultrasound was ordered for further assessment evaluation. These results were reviewed with the patient today. Bilateral kidneys with no calculi, lesions, and or hydronephrosis noted. The bladder is well distended and unremarkable. Bilateral ureteral jets are demonstrated. Pre void bladder volume is approximately 750 mL. Postvoid bladder volume is approximately 90 mL. Currently patient is completing last day of Bactrim for recent urinary tract infection. Urine culture obtain on 11/13 notable for Escherichia coli. Patient treated with full strength Bactrim b.i.d. which per culture is appropriate coverage. She currently denies any UTI like symptoms. In office urinalysis results with no leukocytes or nitrates however 3+ microscopic hematuria. However, patient reports recently undergoing /termination of . Discussed at length potential causes for recurrent urinary tract infections as well as microscopic hematuria. Discussed trial of suppression therapy with methenamine and vitamin-C verses low-dose antibiotic therapy. Discussed at length importance of bowel regimen. When asked patient reports to be drinking plenty of water daily. Discussed near future in office cystoscopy if recurrent UTIs persist. She otherwise denies any issues or concerns at this time. PVR 33 mL. [facility] Medical History Anxiety Arthralgia Depression Elevated C-reactive protein (CRP) Fatigue History of eye muscle disorder Insomnia No history of diphtheria, pertussis, and tetanus (DPT) vaccination Overweight (BMI 25.0-29.9) Positive MARIAN (antinuclear antibody) Vitamin D deficiency Surgical History No significant past surgical history Family History Father No problems noted. 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 Cognitive needs: No Hearing needs: No Vision needs: Yes (glasses) Review of Systems Const All systems reviewed & are unremarkable except as noted in HPI and below Reports as per HPI Eyes Reports no additional complaints ENT Reports no additional complaints Card Reports no additional complaints Resp Reports no additional complaints GI Reports no additional complaints Reports as per HPI Musc Reports no additional complaints Neuro Reports no additional complaints Psych Reports as per HPI Physical Exam Const General: cooperative, healthy appearing, comfortable, no acute distress, well developed, alert and awake Orientation/consciousness: patient oriented x3 Limitations: no limitations HEENT Head: Yes normal to inspection, Yes normocephalic and Yes atraumatic Ears: hearing grossly normal bilaterally Eyes General: appearance normal, both eyes and all related structures Neck Neck: Yes normal visual inspection and Yes trachea midline Chest Chest palpation & inspection: normal inspection of the chest Resp Effort & Inspection: normal respiratory effort and able to speak in complete sentences Cardio Rate: regular rate GI Inspection: Yes normal to inspection General: Yes no CVA tenderness Back/Spine/Pelvis Back: no CVA tenderness Skin General skin exam: no rashes or lesions noted Neuro General: patient oriented x3 Extrem General: Yes normal to inspection Psych Appearance: grossly normal and well kempt Mental Status: mental status grossly normal Speech and movement: Normal speech and movement present and Clear speech present Affect: normal affect Attitude: cooperative Thought process: Normal thought process present Thought content: Normal thought content present Insight: Good insight present (Psych) Judgement: Good judgement present (Psych) Office Procedures Post Void Residual Post Residual Void Post Void Residual (PVR): 33 73703-Bgke Void Residual by ultrasound Results AMB Urinalysis, Automated UA Leukoctes 0 Yasmin/uL Last Edit by [employer] on 11/20/22 14:14 UA Nitrite Negative Last Edit by [employer] on 11/20/22 14:14 UA Urobilinogen 0.2 mg/dL Last Edit by [employer] on 11/20/22 14:14 UA Protein 0 mg/dL Last Edit by [employer] on 11/20/22 14:14 UA pH 6.5 Last Edit by [employer] on 11/20/22 14:14 UA Blood 200 Sandoval/uL Last Edit by [employer] on 11/20/22 14:14 UA Specific [place] 1.015 Last Edit by [employer] on 11/20/22 14:14 UA Ketone Negative Last Edit by [employer] on 11/20/22 14:14 UA Bilirubin 0 mg/dL Last Edit by [employer] on 11/20/22 14:14 UA Glucose 0 mg/dL Last Edit by [employer] on 11/20/22 14:14 Results Reviewed Results Reviewed: Laboratory Last Values Urine pH (Auto) 6.5 11/20/22 13:53 Specific [place] (Auto) 1.015 11/20/22 13:53 Urine Protein (Auto) 0 mg/dL 11/20/22 13:53 Glucose (UA)(Auto) 0 mg/dL 11/20/22 13:53 Urine Ketones (Auto) Negative 11/20/22 13:53 Urine Blood (Auto) 200 Sandoval/uL 11/20/22 13:53 Urine Nitrite (Auto) Negative 11/20/22 13:53 Urine Bilirubin (Auto) 0 mg/dL 11/20/22 13:53 Urine Urobilinogen (Auto) 0.2 mg/dL 07/24/23 13:53 Leukocyte Esterase (Auto) 0 Yasmin/uL 11/20/22 13:53 Date of Service: 10/27/22 EXAMINATION: US RETROPERITONEAL COMPLETE (RENAL) FINDINGS: RIGHT KIDNEY: 11.5 x 3.7 x 5.2 cm (SAG x AP x TRV). No hydronephrosis. No renal calculi. Renal cortical thickness is normal. LEFT KIDNEY: 11.2 x 5.1 x 4.9 cm (SAG x AP x TRV). No hydronephrosis. No renal calculi. Renal cortical thickness is normal. Limited visualization due to bowel gas. BLADDER: Well distended. Unremarkable bladder. Bilateral ureteral jets are demonstrated. Prevoid bladder volume is 743 mL. Postvoid bladder volume is 87 mL. IMPRESSION: ? 1. No hydronephrosis. No renal calculi. ? Assessment & Plan Assessment & Plan (1) Incomplete bladder emptying: Code(s): R33.9 - Retention of urine, unspecified (2) Recurrent UTI: Code(s): N39.0 - Urinary tract infection, site not specified (3) Microhematuria: Code(s): R31.29 - Other microscopic hematuria Plan In office urinalysis results reviewed with the patient today. Discussed at length potential causes for recurrent urinary tract infections as well as microscopic hematuria. Start methenamine and vitamin-C as discussed and prescribed. Discussed near future in office cystoscopy if symptoms persist and/or worsen. Recent retroperitoneal ultrasound results reviewed with the patient today. Discussed UTI prevention with D mannose supplement, vitamin-C, increasing fluid intake, behavioral therapy with timed voiding, perineal hygiene and postcoital voiding, and management of constipation with stool softeners and increased fiber intake. Follow-up in 3 months if not sooner with any questions, concerns, and or issues. Orders: Orders AMB Urinalysis Automated Today Z13.9 - Encounter for screening, unspecified AMB Post Void Residual by ultrasound Today R39.14 - Feeling of incomplete bladder emptying Medications: New methenamine hippurate 1 g PO DAILY 90 days 90 tabs 1RF N39.0 - Urinary tract infection, site not specified ascorbic acid (vitamin C) 1 g PO DAILY 90 days 90 tabs 1RF N39.0 - Urinary tract infection, site not specified Patient Instructions: The patient had an opportunity to ask questions regarding the treatment plan. All questions were answered. Physical exam, labs, and imaging were discussed and reviewed in detail. As well as risks, benefits, and discussion of treatment choices. No major barriers to understanding were identified. The patient expressed understanding and agreement with the above treatment plan. The patient was made aware they should contact our office by phone for worsening of their current condition, the appearance of new symptoms, or with any questions or concerns. Compliance is encouraged with any medications and follow up testing that is ordered. It is a privilege to be allowed the opportunity to participate in? your urological care.? Again, if you have any questions or concerns If you have any questions or concerns please do not hesitate to contact me. The office is [phone]. This note is constructed using voice recognition software. While every effort has been made to ensure accuracy radiotelephone operator errors may have been included. Yours sincerely, YEE Elena- Coding Level of Care Code Est Pt Level 4 (29007) Diagnoses Incomplete bladder emptying R33.9 Recurrent UTI N39.0 Microhematuria R31.29 CPT Codes Post Residual Void - PVR CPT Code: 84358-Vkfu Void Residual by ultrasound ([id number])
== END 2022-11-20 14:23 | disposition home or self-care (01) ==
PROVIDERS: PCP Internal Medicine; Visit Provider Nurse Practitioner Family
DX: R33.9 Retention of urine, unspecified (principal); N39.0 Urinary tract infection, site not specified; R31.29 Other microscopic hematuria
CPT/HCPCS: 99214

== ENCOUNTER → 2022-11-20 13:43 | Outpatient (BNVA) | payer OTHER, SELFPAY | PROVIDERS: PCP Internal Medicine; Visit Provider Nurse Practitioner Family | DX: R33.9 Retention of urine, unspecified (principal); N39.0 Urinary tract infection, site not specified; R31.29 Other microscopic hematuria | CPT/HCPCS: 51798 ==

== ENCOUNTER 2022-11-27 14:22 | Emergency (ER) | payer OTHER, SELFPAY ==
--- NOTE | ~2022-11-27 | US_ITS ---
EXAMINATION: US PELVIS CLINICAL INFORMATION: Pelvic pain COMPARISON: None available. TECHNIQUE: Ultrasound of the pelvis is performed using both transabdominal and transvaginal transducers along with Doppler. Transvaginal imaging is performed due to inadequate visualization transabdominally. FINDINGS: Uterus: The uterus is anteverted and anteflexed and measures 10.0 x 4.0 x 5.1 cm. The double wall endometrial thickness cannot be measured as an IUD is present in the endometrial cavity in good position. There is a fluid collection seen in the endometrial canal measuring about 2.9 x 1.1 x 1.9 cm The uterus is smooth in contour and has normal myometrial echogenicity. No visible fibroid. Adnexa: Both ovaries are visualized. There is normal color flow to the adnexa. There is no evidence to suggest ovarian torsion. There is no pelvic ascites or fluid collection. Right ovary measures 3.1 x 1.5 x 1.5 cm for a volume of 3.6 mL and contains follicles. Left ovary measures 2.7 x 1.7 x 1.6 cm for a volume of 3.8 mL and contains follicles US/US pelvic and transvaginal IMPRESSION: There is a fluid collection in the endometrial canal which could represent a small amount of retained products if this patient had a history of . Please correlate with history and hCG levels. An IUD is present in the endometrial cavity in good position. A follow-up transabdominal and endovaginal ultrasound is recommended in one month's time.
--- NOTE | ~2022-11-27 | US_ITS ---
EXAMINATION: US PELVIS CLINICAL INFORMATION: Pelvic pain COMPARISON: None available. TECHNIQUE: Ultrasound of the pelvis is performed using both transabdominal and transvaginal transducers along with Doppler. Transvaginal imaging is performed due to inadequate visualization transabdominally. FINDINGS: Uterus: The uterus is anteverted and anteflexed and measures 10.0 x 4.0 x 5.1 cm. The double wall endometrial thickness cannot be measured as an IUD is present in the endometrial cavity in good position. There is a fluid collection seen in the endometrial canal measuring about 2.9 x 1.1 x 1.9 cm The uterus is smooth in contour and has normal myometrial echogenicity. No visible fibroid. Adnexa: Both ovaries are visualized. There is normal color flow to the adnexa. There is no evidence to suggest ovarian torsion. There is no pelvic ascites or fluid collection. Right ovary measures 3.1 x 1.5 x 1.5 cm for a volume of 3.6 mL and contains follicles. Left ovary measures 2.7 x 1.7 x 1.6 cm for a volume of 3.8 mL and contains follicles US/US pelvic ovarian doppler IMPRESSION: There is a fluid collection in the endometrial canal which could represent a small amount of retained products if this patient had a history of . Please correlate with history and hCG levels. An IUD is present in the endometrial cavity in good position. A follow-up transabdominal and endovaginal ultrasound is recommended in one month's time.
[2022-11-27 15:29] VITALS: BP 135/96; PULSE 69; RESP 18; TEMP 36.7; O2SAT 98; BMI 26.6
--- NOTE | 2022-11-27 15:29 | ED.GENADULT ---
HPI - General Adult General Chief complaint: Vaginal Bleeding Stated complaint: pain from IUD Related Data Home Medications ?Medication ?Instructions ?Recorded ?Confirmed cholecalciferol (vitamin D3) 50 50 mcg PO DAILY 10/23/22 05/25/23 mcg (2,000 unit) capsule norethindrone 1 mg-ethinyl 1 tab PO DAILY 05/24/23 05/25/23 estradiol 20 mcg (21)-iron 75 mg (7) tablet (June FE 05/19 (28)) Previous Rx's ?Medication ?Instructions ?Recorded quetiapine 25 mg tablet 25 mg PO BEDTIME 90 days #90 tabs 03/06/22 bupropion HCl 300 mg 24 hr tablet, 300 mg PO QAM 90 days #90 tabs 05/25/23 extended release albuterol sulfate 90 mcg/actuation 2 puff inhalation Q6H PRN 08/08/23 aerosol inhaler (Ventolin HFA) shortness of breath or wheezing 30 days #8.5 grams inhalational spacing device (Raymundo #1 ea 09/06/23 Aerosol Refugio Enhancer spacer) lorazepam 0.5 mg tablet 0.5 mg PO TID PRN anxiety 30 days 10/12/23 #90 tabs Allergies Allergy/AdvReac Type Severity Reaction Status Date / Time No Known Allergies Allergy Verified 05/25/23 16:00 [No Known Allergies*] [facility] Past Medical History Medical History History of eye muscle disorder Vitamin D deficiency Overweight (BMI 25.0-29.9) Positive MARIAN (antinuclear antibody) Elevated C-reactive protein (CRP) Depression Insomnia Anxiety Arthralgia Fatigue No history of diphtheria, pertussis, and tetanus (DPT) vaccination Surgical History No significant past surgical history Family History Family History Father No problems noted. 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 42-year-old female presents with pelvic pain for few weeks, patient reports she had an IUD placed (11/02) since then has been having severe pain. Also reports associated vaginal bleeding, not heavy per patient. Denies fevers, chills, nausea, vomiting. Will obtain ultrasound, urine Discharge Plan Discharge Clinical Impression: Eloped from emergency department Patient Disposition: Elopement Prescriptions: No Action quetiapine 25 mg tablet 25 mg PO BEDTIME 90 Days Qty: 90 3RF albuterol sulfate [Ventolin HFA] 90 mcg/actuation HFA aerosol inhaler 2 puff inhalation Q6H PRN (Reason: shortness of breath or wheezing) 30 Days Qty: 8.5 1RF (DME) Raymundo Aerosol [place]ugio Enhancer Spacer See Rx Instructions .Route Qty: 1 0RF Rx Instructions: As directed lorazepam 0.5 mg tablet 0.5 mg PO TID PRN (Reason: anxiety) 30 Days Qty: 90 0RF cholecalciferol (vitamin D3) 50 mcg (2,000 unit) capsule 50 mcg PO DAILY bupropion HCl 300 mg tablet extended release 24 hr 300 mg PO QAM 90 Days Qty: 90 1RF norethindrone-e.estradiol-iron [05/19 (28)] 1 mg-20 mcg (21)/75 mg (7) tablet 1 tab PO DAILY Interventions: ED Discharge Assessment Last Done: 11/27/22 22:06 Discharge Date/Time: 11/27/22 22:06 Print Language: Greek
== END 2022-11-27 22:06 | disposition left against medical advice (07) ==
PROVIDERS: Emergency Provider Internal Medicine; PCP Internal Medicine
DX: R10.2 Pelvic and perineal pain (principal); N93.9 Abnormal uterine and vaginal bleeding, unspecified; Z97.5 Presence of (intrauterine) contraceptive device
CPT/HCPCS: 76830; 76856; 93975; 99282; 99284

== ENCOUNTER 2023-01-15 15:52 | Outpatient (REF) | payer OTHER, SELFPAY ==
[2023-01-15 18:41] LABS: Appearance Urine Clear; Color Urine Yellow; Glucose Urine UA Negative (Negative); Leukocyte Esterase Urine Negative (Negative); Nitrite Urine Negative (Negative); UMIC TRIGGER UA YES; Urine Blood Moderate (2+) (Negative); Urine Ketones Negative (Negative); Urine Protein Negative (Neg-Trace)
[2023-01-15 19:54] LABS: Bacteria Urine None Seen (None Seen); Hyaline Casts Urine 0-2 /LPF (0-2); RBC Urine 0-2 /HPF (0-2); WBC Urine 0-5 /HPF (0-5)
== END 2023-01-15 15:53 | disposition home or self-care (01) ==
LOC: HO.LAB 15:52
PROVIDERS: PCP Internal Medicine; Visit Provider Nurse Practitioner Family
DX: N39.0 Urinary tract infection, site not specified (principal)
CPT/HCPCS: 81001; 87086

== ENCOUNTER 2023-02-19 14:35 | Outpatient (AMB) | payer OTHER, SELFPAY ==
--- NOTE | 2023-02-19 14:38 | A.OFFVIS_ITS ---
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 Foley. She has a past medical history of anxiety, depression, insomnia, positive MARIAN, and vitamin-D deficiency. She presents to the office today for follow-up of her recurrent UTI's. When asked patient reports to be doing and feeling well. She denies any current symptoms of a urinary tract infection. She reports having had UTI like symptoms early last month however urine culture noted Lactobacillus species. However, patient did have UTI 11/19--E coli at which time she was treated. Previous workup has included a retroperitoneal ultrasound noting bilateral kidneys with no calculi, lesions, and or hydronephrosis noted. The bladder is well distended and unremarkable. Bilateral ureteral jets are demonstrated. Pre void bladder volume is approximately 750 mL . Postvoid bladder volume is approximately 90 mL. Discussed at length potential causes for recurrent urinary tract infections as well as microscopic hematuria. Discussed trial of suppression therapy with low-dose antibiotic therapy as patient reports previously trying methenamine and vitamin-C with no improvement. However, discussed importance of giving medications time to become affective. In office urinalysis results reviewed with the patient today. PVR 0ml. When asked patient reports to be drinking plenty of water daily. Discussed near future in office cystoscopy if recurrent UTIs persist as well as microgen. Patient denies constipation. When asked she currently denies urinary urgency, urinary frequency, incontinence, nocturia, hematuria, dysuria, foul smelling urine, changes to urinary stream, flank pain, fever, and or chills.She is happy with her current voiding parameters. She otherwise denies any issues or concerns at this time. [facility] Medical History History of eye muscle disorder Vitamin D deficiency Overweight (BMI 25.0-29.9) Positive MARIAN (antinuclear antibody) Elevated C-reactive protein (CRP) Depression Insomnia Anxiety Arthralgia Fatigue No history of diphtheria, pertussis, and tetanus (DPT) vaccination Surgical History No significant past surgical history Family History Father No problems noted. 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 Cognitive needs: No Hearing needs: No Vision needs: Yes (glasses) Review of Systems Const All systems reviewed & are unremarkable except as noted in HPI and below Reports as per HPI Eyes Reports no additional complaints ENT Reports no additional complaints Card Reports no additional complaints Resp Reports no additional complaints GI Reports no additional complaints Reports as per HPI Musc Reports no additional complaints Neuro Reports no additional complaints Psych Reports as per HPI Physical Exam Const General: cooperative, healthy appearing, comfortable, no acute distress, well developed, alert and awake Orientation/consciousness: patient oriented x3 Limitations: no limitations HEENT Head: Yes normal to inspection, Yes normocephalic and Yes atraumatic Ears: hearing grossly normal bilaterally Eyes General: appearance normal, both eyes and all related structures Neck Neck: Yes normal visual inspection and Yes trachea midline Chest Chest palpation & inspection: normal inspection of the chest Resp Effort & Inspection: normal respiratory effort and able to speak in complete sentences Cardio Rate: regular rate GI Inspection: Yes normal to inspection General: Yes no CVA tenderness Back/Spine/Pelvis Back: no CVA tenderness Skin General skin exam: no rashes or lesions noted Neuro General: patient oriented x3 Extrem General: Yes normal to inspection Psych Appearance: grossly normal and well kempt Mental Status: mental status grossly normal Speech and movement: Normal speech and movement present and Clear speech present Affect: normal affect Attitude: cooperative Thought process: Normal thought process present Thought content: Normal thought content present Insight: Good insight present (Psych) Judgement: Good judgement present (Psych) Office Procedures Post Void Residual Post Residual Void Post Void Residual (PVR): 0 47448-[id number] Void Residual by ultrasound Results AMB Urinalysis, Automated UA Leukoctes 0 Yasmin/uL Last Edit by [employer] Drag[employer]urmeet Magana on 02/19/23 15:02 UA Nitrite Negative Last Edit by [employer] on 02/19/23 15:02 UA Urobilinogen 0.2 mg/dL Last Edit by [employer] on 02/19/23 15:02 UA Protein 0 mg/dL Last Edit by [employer] on 02/19/23 15:02 UA pH 6.5 Last Edit by [employer] on 02/19/23 15:02 UA Blood 200 Sandoval/uL Last Edit by [employer] on 02/19/23 15:02 UA Specific [place] 1.005 Last Edit by [employer] on 02/19/23 15:02 UA Ketone Negative Last Edit by [employer] on 02/19/23 15:02 UA Bilirubin 0 mg/dL Last Edit by [employer] on 02/19/23 15:02 UA Glucose 0 mg/dL Last Edit by [employer] on 02/19/23 15:02 Results Reviewed Results Reviewed: Laboratory Last Values Urine pH (Auto) 6.5 02/19/23 14:44 Specific [place] (Auto) 1.005 02/19/23 14:44 Urine Protein (Auto) 0 mg/dL 02/19/23 14:44 Glucose (UA)(Auto) 0 mg/dL 02/19/23 14:44 Urine Ketones (Auto) Negative 02/19/23 14:44 Urine Blood (Auto) 200 Sandoval/uL 02/19/23 14:44 Urine Nitrite (Auto) Negative 02/19/23 14:44 Urine Bilirubin (Auto) 0 mg/dL 02/19/23 14:44 Urine Urobilinogen (Auto) 0.2 mg/dL 02/19/23 14:44 Leukocyte Esterase (Auto) 0 Yasmin/uL 02/19/23 14:44 Assessment & Plan Assessment & Plan (1) Microhematuria: Code(s): R31.29 - Other microscopic hematuria (2) Recurrent UTI: Code(s): N39.0 - Urinary tract infection, site not specified Plan In office urinalysis results reviewed with the patient today. Start low-dose Bactrim as discussed and prescribed. Discussed UTI prevention with D mannose supplement, vitamin-C, increasing fluid intake, behavioral therapy with timed voiding, perineal hygiene and postcoital voiding, and management of constipation with stool softeners and increased fiber intake. She is happy with her current voiding parameters. Follow-up in 3 months with PVR; if not sooner with any issues, concerns, and or questions. Orders: Orders AMB Urinalysis Automated Today Z13.9 - Encounter for screening, unspecified AMB Post Void Residual by ultrasound Today N39.0 - Urinary tract infection, site not specified Medications: New sulfamethoxazole-trimethoprim 400-80 mg (Bactrim) 1 tab PO BEDTIME 90 days 90 tabs 0RF N39.0 - Urinary tract infection, site not specified Coding Level of Care Code Est Pt Level 4 (70067) Diagnoses Microhematuria R31.29 Recurrent UTI N39.0 CPT Codes Post Residual Void - PVR CPT Code: 04733-Mifz Void Residual by ultrasound ([id number])
== END 2023-02-19 15:17 | disposition home or self-care (01) ==
PROVIDERS: PCP Internal Medicine; Visit Provider Nurse Practitioner Family
DX: R31.29 Other microscopic hematuria (principal); N39.0 Urinary tract infection, site not specified
CPT/HCPCS: 99214

== ENCOUNTER → 2023-02-19 14:35 | Outpatient (BNVA) | payer OTHER, SELFPAY | PROVIDERS: PCP Internal Medicine; Visit Provider Nurse Practitioner Family | DX: R31.29 Other microscopic hematuria (principal); N39.0 Urinary tract infection, site not specified | CPT/HCPCS: 51798; 81003 ==

== ENCOUNTER 2023-03-29 12:18 | Outpatient (REF) | payer OTHER, SELFPAY ==
[2023-03-29 14:42] LABS: Appearance Urine Hazy; Color Urine Orange; Leukocyte Esterase Urine Negative (Negative); Specific Gravity - Urine <= 1.005 (1.005-1.025); UMIC TRIGGER UA YES; Urine Blood Negative (Negative); Urine Ketones Negative (Negative); Urine Protein 30 (1+) mg/dL (Neg-Trace)
[2023-03-29 14:44] LABS: Bacteria Urine None Seen (None Seen); Hyaline Casts Urine 0-2 /LPF (0-2); RBC Urine 0-2 /HPF (0-2); Squamous Epithelial Cell Urine 0-2 /HPF (0-2); WBC Urine 0-5 /HPF (0-5)
== END 2023-03-29 12:19 | disposition home or self-care (01) ==
LOC: HO.LAB 12:18
PROVIDERS: PCP Internal Medicine; Visit Provider Nurse Practitioner Family
DX: N39.0 Urinary tract infection, site not specified (principal)
CPT/HCPCS: 81001; 87086

== ENCOUNTER 2023-05-24 10:54 | Outpatient (AMB) | payer OTHER, SELFPAY ==
--- NOTE | 2023-05-24 11:26 | MHC.OFFVIS ---
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 Foley. She has a past medical history of anxiety, depression, insomnia, positive MARIAN, and vitamin-D deficiency. She presents to the office today for follow-up of her recurrent UTI's. When asked patient reports to be doing and feeling well. She denies any current symptoms of a urinary tract infection. She reports having stopped low dose suppression therapy as she felt she kept experiencing yeast infections. However, since her last office visit here approximately 3 months ago she denies having had or experienced any UTI like symptoms. In office urinalysis results reviewed with the patient today. PVR 26ml's. When asked she currently denies urinary urgency, urinary frequency, incontinence, nocturia, hematuria, dysuria, foul smelling urine, changes to urinary stream, flank pain, fever, and or chills. She is happy with her current voiding parameters. Previous workup has included a retroperitoneal ultrasound noting no hydronephrosis or renal calculi. The bladder is well distended and unremarkable. She otherwise denies any issues or concerns at this time. FORMERLY [facility] Medical History History of eye muscle disorder Vitamin D deficiency Overweight (BMI 25.0-29.9) Positive MARIAN (antinuclear antibody) Elevated C-reactive protein (CRP) Depression Insomnia Anxiety Arthralgia Fatigue No history of diphtheria, pertussis, and tetanus (DPT) vaccination Surgical History No significant past surgical history Family History Father No problems noted. 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 Cognitive needs: No Hearing needs: No Vision needs: Yes (glasses) Review of Systems Const All systems reviewed & are unremarkable except as noted in HPI and below Reports as per HPI Eyes Reports no additional complaints ENT Reports no additional complaints Card Reports no additional complaints Resp Reports no additional complaints GI Reports no additional complaints Reports as per HPI Musc Reports no additional complaints Neuro Reports no additional complaints Psych Reports as per HPI Physical Exam Const General: cooperative, healthy appearing, comfortable, no acute distress, well developed, alert and awake Orientation/consciousness: patient oriented x3 Limitations: no limitations HEENT Head: Yes normal to inspection, Yes normocephalic and Yes atraumatic Ears: hearing grossly normal bilaterally Eyes General: appearance normal, both eyes and all related structures Neck Neck: Yes normal visual inspection and Yes trachea midline Chest Chest palpation & inspection: normal inspection of the chest Resp Effort & Inspection: normal respiratory effort and able to speak in complete sentences Cardio Rate: regular rate GI Inspection: Yes normal to inspection General: Yes no CVA tenderness Back/Spine/Pelvis Back: no CVA tenderness Skin General skin exam: no rashes or lesions noted Neuro General: patient oriented x3 Extrem General: Yes normal to inspection Psych Appearance: grossly normal and well kempt Mental Status: mental status grossly normal Speech and movement: Normal speech and movement present and Clear speech present Affect: normal affect Attitude: cooperative Thought process: Normal thought process present Thought content: Normal thought content present Insight: Good insight present (Psych) Judgement: Good judgement present (Psych) Office Procedures Post Void Residual Post Residual Void Post Void Residual (PVR): 26 [id number] Void Residual by ultrasound Results AMB Urinalysis, Automated UA Leukoctes 0 Yasmin/uL Last Edit by Salvador Palenciass on 05/24/23 11:31 UA Nitrite Negative Last Edit by Maurizioyce Slimess on 05/24/23 11:31 UA Urobilinogen 0.2 mg/dL Last Edit by Maurizioycgurmeet Magana on 05/24/23 11:31 UA Protein 0 mg/dL Last Edit by Maurizioycgurmeet Magana on 05/24/23 11:31 UA pH 8.0 Last Edit by Maurizioyce Izzy on 05/24/23 11:31 UA Blood 0 Sandoval/uL Last Edit by Maurizioyce Izzy on 05/24/23 11:31 UA Specific [place] 1.010 Last Edit by Maurizioyce Izzy on 05/24/23 11:31 UA Ketone Negative Last Edit by Salvador Magana on 05/24/23 11:31 UA Bilirubin 0 mg/dL Last Edit by Salvador Magana on 05/24/23 11:31 UA Glucose 0 mg/dL Last Edit by Salvador Magana on 05/24/23 11:31 Results Reviewed Results Reviewed: Laboratory Last Values Urine pH (Auto) 8.0 05/24/23 11:29 Specific [place] (Auto) 1.010 05/24/23 11:29 Urine Protein (Auto) 0 mg/dL 05/24/23 11:29 Glucose (UA)(Auto) 0 mg/dL 05/24/23 11:29 Urine Ketones (Auto) Negative 05/24/23 11:29 Urine Blood (Auto) 0 Asndoval/uL 05/24/23 11:29 Urine Nitrite (Auto) Negative 05/24/23 11:29 Urine Bilirubin (Auto) 0 mg/dL 05/24/23 11:29 Urine Urobilinogen (Auto) 0.2 mg/dL 05/24/23 11:29 Leukocyte Esterase (Auto) 0 Yasmin/uL 05/24/23 11:29 Assessment & Plan Assessment & Plan (1) Microhematuria: Code(s): R31.29 - Other microscopic hematuria (2) Recurrent UTI: Code(s): N39.0 - Urinary tract infection, site not specified Plan In office urinalysis results reviewed with the patient today. Stop low-dose Bactrim Discussed UTI prevention with D mannose supplement, vitamin-C, increasing fluid intake, behavioral therapy with timed voiding, perineal hygiene and postcoital voiding, and management of constipation with stool softeners and increased fiber intake. She is happy with her current voiding parameters. Patient currently denies any bothersome urinary issues or concerns She denies any UTI like symptoms. Will continue with surveillance monitoring. Discussed possible near future in office cystoscopy if symptoms arise. Follow-up in 6 months with PVR; if not sooner with any issues, concerns, and or questions. Orders: Orders AMB Post Void Residual by ultrasound Today R33.9 - Retention of urine, unspecified AMB Urinalysis Automated Today Z13.9 - Encounter for screening, unspecified Patient Instructions: The patient had an opportunity to ask questions regarding the treatment plan. All questions were answered. Physical exam, labs, and imaging were discussed and reviewed in detail. As well as risks, benefits, and discussion of treatment choices. No major barriers to understanding were identified. The patient expressed understanding and agreement with the above treatment plan. The patient was made aware they should contact our office by phone for worsening of their current condition, the appearance of new symptoms, or with any questions or concerns. Compliance is encouraged with any medications and follow up testing that is ordered. It is a privilege to be allowed the opportunity to participate in? your urological care.? Again, if you have any questions or concerns If you have any questions or concerns please do not hesitate to contact me. The office is [phone]. This note is constructed using voice recognition software. While every effort has been made to ensure accuracy overlock sewing machine operator errors may have been included. Yours sincerely, NICKI Elena Coding Level of Care Code Est Pt Level 3 (53932) Diagnoses Microhematuria R31.29 Recurrent UTI N39.0 CPT Codes Post Residual Void - PVR CPT Code: 44480-Xztl Void Residual by ultrasound ([id number])
== END 2023-05-24 11:35 | disposition home or self-care (01) ==
PROVIDERS: PCP Internal Medicine; Visit Provider Nurse Practitioner Family
DX: R31.29 Other microscopic hematuria (principal); N39.0 Urinary tract infection, site not specified
CPT/HCPCS: 99213

== ENCOUNTER → 2023-05-24 10:54 | Outpatient (BNVA) | payer OTHER, SELFPAY | PROVIDERS: PCP Internal Medicine; Visit Provider Nurse Practitioner Family | DX: R31.29 Other microscopic hematuria (principal); N39.0 Urinary tract infection, site not specified | CPT/HCPCS: 51798; 81003 ==

== ENCOUNTER 2023-05-25 14:55 | Outpatient (AMB) | payer OTHER, SELFPAY ==
--- NOTE | 2023-05-25 15:07 | MHC.PC.OV ---
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 Accompanied by: Self / Same As Patient Allergies No Known Allergies [No Known Allergies*] Allergy (Verified 05/25/23 16:00) Medication List - Last Reconciled 05/25/23 by John Paul Foley MD bupropion HCl 300 mg PO QAM 90 days cholecalciferol (vitamin D3) 50 mcg PO DAILY lorazepam 0.5 mg PO TID PRN 30 days norethindrone-e.estradiol-iron 1 mg-20 mcg ()/75 mg () (05/19 ()) 1 tab PO DAILY quetiapine 25 mg PO BEDTIME 90 days Tobacco use date assessed: 05/25/23 Dental Screening Dental Screen Date: 05/25/23 Did you have a dental visit in the last 12 months?: Yes Did you have a dental problem in the last 6 months where you did not have access to dental care?: No Was dental information given to patient?: Patient has dentist HPI Annual Exam HPI Details Patient comes in today for her annual physical examination States that she feels okay She denies any headaches or dizziness Denies any chest pains, no shortness of breath No nausea/vomiting, no abdominal pain No change in bowel habits noted Denies any acute urinary symptoms Needs a couple of her Rx refilled - states that she would also like to get a refill on her Albuterol inhaler States that she does not have any asthma but has a history of smoking although she quit about 7-8 years ago; notes that she still occasionally needs to use the inhaler when her chest starts to feel tight States that she has not been able to get her previously ordered follow-up labs done yet and will try to get them done HAYLEE She is up-to-date on her annual gynecologic exam and Pap smear - [facility] Medical History History of eye muscle disorder Vitamin D deficiency Overweight (BMI 25.0-29.9) Positive MARIAN (antinuclear antibody) Elevated C-reactive protein (CRP) Depression Insomnia Anxiety Arthralgia Fatigue No history of diphtheria, pertussis, and tetanus (DPT) vaccination Surgical History No significant past surgical history Family History Father No problems noted. 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 1. Little interest or pleasure in doing things: not at all 2. Feeling down, depressed, or hopeless: not at all 3. Trouble falling or staying asleep, or sleeping too much: not at all 4. Feeling tired or having little energy: not at all 5. Poor appetite or overeating: not at all 6. Feeling bad about yourself - or that you are a failure or have let yourself or your family down: not at all 7. Trouble concentrating on things, such as reading the newspaper or watching television: not at all 8. Moving or speaking so slowly that other people could have noticed. Or the opposite - being so fidgety or restless that you have been moving around a lot more than usual: not at all 9. Thoughts that you would be better off or of hurting yourself in some way: not at all Total score: 0 Depression Screening Interpretation: Negative Depression Screening Done: Yes 44470 - PHQ-9 Billing: Yes Source: Developed by Drs. Leo Liang, Juliana Sharma, Anshu Pierre and colleagues, with an educational ernie from [employer]. Thrive Questionnaire Date Thrive assessed: 05/25/23 I am a: Patient What is your living situation today?: I have a steady place to live Within the past 12 months, did the food you bought not last and you didn't have the money to get more?: Never true Within the past 12 months, did you worry whether your food would run out before you got money to buy more?: Never true Do you have trouble paying for medicines?: No Do you have trouble getting transportation to medical appointments?: No Do you have trouble paying your heating and electricity bill?: No Do you have trouble taking care of your child, family member or friend?: No Do you have trouble with day-to-day activities such as bathing, preparing meals, shopping, managing finances, etc.?: No Are you currently unemployed and looking for a job?: No Are you interested in more education?: No Please select the resources that you would like help with: None Currently or been in a relationship where the following occur: no concerns reported THRIVE Score: 0 AUDIT C Alcohol Use Questionnaire (AUDIT-C) 1. How often do you have a drink containing alcohol?: Monthly or less 2. How many drinks containing alcohol do you have on a typical day when you are drinking?: 1 or 2 3. How often do you have six or more drinks on one occasion?: Never Total Score: 1 Score Reviewed/Action Taken: Yes STEPHANIE-7 AMB Questionnaire STEPHANIE-7 Date STEPHANIE - 7 assessed: 05/25/23 Feeling nervous, anxious, or on edge: 1 = Several days Not being able to stop or control worryin = Several days Worrying too much about different things: 1 = Several days Trouble relaxin = Several days Being so restless that it is hard to sit still: 1 = Several days Becoming easily annoyed or irritable: 1 = Several days Feeling afraid as if something awful might happen: 1 = Several days Total STEPHANIE-7 score (0-4 normal; 5-9 mild; 10-14 moderate; 15-21 severe): 7 Source: Developed by Drs. Leo Liang, Juliana Sharma, Anshu Pierre and colleagues, with an educational ernie from [employer]. STEPHANIE-7 Assessment Billing STEPHANIE-7 Assessment Tool: STEPHANIE-7 Assessment 55963 Review of Systems Const Denies chills, Denies fatigue, Denies fever(s), Denies headache(s) and Denies malaise Eyes Denies blurry vision, Denies change in vision, Denies irritation and Denies itchy eyes ENT Denies dysphagia, Denies dizziness, Denies otalgia, Denies headache(s), Denies nasal congestion, Denies neck pain, Denies odynophagia, Denies sinus pain and Denies sore throat Card Denies chest pain, Denies rapid heart rate, Denies irregular heart rhythm, Denies palpitations and Denies dyspnea Resp Denies chest congestion, Denies cough, Denies dyspnea and Denies wheezing GI Denies abdominal pain, Denies bloating, Denies constipation, Denies dysphagia, Denies heartburn, Denies diarrhea, Denies nausea, Denies odynophagia and Denies vomiting Denies hematuria, Denies urinary frequency, Denies dysuria, Denies urinary incontinence and Denies urinary urgency Musc Denies back pain, Denies arthralgias, Denies joint swelling, Denies muscle weakness and Denies neck pain Skin/Breast Denies breast pain, Denies breast mass, Denies change in pigmentation, Denies lesions, Denies rash and Denies unusual bruising Neuro Denies dizziness, Denies headache(s) and Denies paresthesias Psych Denies anxiety and Denies depression Endo Denies fatigue and Denies palpitations Obey/Lymph Denies easy bruising Aller/Immun Denies itchy eyes and Denies wheezing Physical exam (Primary Care) Vital Signs: Last Vital Signs Pulse 83 05/25/23 15:08 BP 128/80 05/25/23 15:08 Pulse Ox 98 05/25/23 15:08 Oxygen Delivery Method Room Air 05/25/23 15:08 BMI result Body Mass Index 29.1 Tobacco/Smoking Status: Tobacco use Status Tobacco use date assessed 05/25/23 05/25/23 15:15 Patient Tobacco Use Status Former Tobacco user 05/25/23 15:15 Tobacco use type Cigarette 05/25/23 15:15 e-Cigarette/Vaping Use Never Used 05/25/23 15:15 PHQ-9: PHQ-9 Score PHQ-9: Total score 0 05/25/23 16:04 Depression Screening Interpretation: Negative Thrive Assessment: Date of Thrive Assessment Date Thrive assessed 05/25/23 05/25/23 15:15 Currently or been in a relationship where the following occur: no concerns reported Const General: no acute distress, alert and awake Orientation/consciousness: patient oriented x3 HENMT Head: Yes normocephalic and Yes atraumatic Ears: external ears normal, TM's normal bilaterally and EAC's normal General nose exam: No nasal discharge present Face and sinus: Yes normal facial exam and Yes sinuses nontender Teeth and gingiva: dentition normal Throat: Yes posterior oropharynx normal and Yes tonsils normal (no TP congestion) Eyes Eyelids: Yes eyelids normal Conjunctivae: conjunctivae normal Pupils: Equal, round and reactive pupils present EOM: EOMs intact bilaterally Neck Neck: Yes no lymphadenopathy and Yes supple Thyroid: Thyroid normal Resp Auscultation: clear to auscultation bilaterally, no rales and no wheezes Cardio Rate: regular rate Rhythm: regular rhythm Heart sounds: no murmurs GI Palpation (GI): Soft to palpation, nontender and No hepatosplenomegaly present Auscultation: normal bowel sounds General: Yes no CVA tenderness Back/Spine/Pelvis Back: no CVA tenderness Thoracic/Lumbar Spine: thoracic and lumbar spine normal to inspection Skin Lesions: no lesions Rashes: no rashes Neuro General: patient oriented x3, moves all extremities, no focal motor deficits and CN's II-XI intact bilaterally Cranial nerves: Yes Equal, round and reactive pupils present Cognition (Neuro): normal cognition Gait exam (Neuro): Normal gait present Extrem General: Yes no clubbing, cyanosis or edema Assessment and Plan Assessment & Plan (1) Annual physical exam: Code(s): Z00.00 - Encounter for general adult medical examination without abnormal findings Plan: Check labs AHYLEE She is up-to-date with her annual gynecologic exam and pap smear - [facility] She is now due to start annual breast cancer screening (2) Elevated blood pressure reading: Code(s): R03.0 - Elevated blood-pressure reading, without diagnosis of hypertension Plan: Her blood pressure in the office today is normal at 128/80 Aside from her last visit, her blood pressure readings here in the office during all of her past few visits have been normal Reinforced low sodium diet Patient is instructed to continue monitoring her blood pressure periodically (3) Strabismus: Code(s): H50.9 - Unspecified strabismus Plan: S/P corrective eye muscle surgery of both eyes on 02/15/[address] Jimmie Soler - states that her vision and eye symptoms have all improved significantly with surgery (4) Vitamin D deficiency: Code(s): E55.9 - Vitamin D deficiency, unspecified Plan: Continue Vitamin D3 2000 units QD Will recheck her labs and Vitamin D level HAYLEE for follow up (5) Positive MARIAN (antinuclear antibody): Code(s): R76.8 - Other specified abnormal immunological findings in serum Plan: Has been seen and evaluated by rheumatology back in 2020 - all work ups were negative and patient does not have any signs or symptoms of active CTD or lupus Was advised to just see rheumatology again for follow up on an as needed basis (6) Ex-smoker: Code(s): Z87.891 - Personal history of nicotine dependence Plan: Per request, will refill her Albuterol HFA 1 to 2 inhalations Q 6 hours PRN Advised that if she continues to feel the need to use her Albuterol inhaler, then she may need to get further work ups done to check her for possible reactive airway disease or other possible pulmonary conditions (7) Anxiety: Code(s): F41.9 - Anxiety disorder, unspecified Plan: Continue Bupropion XL 300 mg QD and Lorazepam 0.5 mg TID PRN (Rx refilled) Patient feels that her anxiety is well-controlled on her current Rx although advised that if she still has to take her Lorazepam fairly regularly at 3 times a day on a daily basis, then her anxiety may not be as well-controlled as she thinks it is Discussed option of increasing her [place] XL further to 450 mg QD if her anxiety is still as issue - patient to call if she decides to go this route Continues to follow up with her therapist regularly (8) Depression: Code(s): F32.9 - Major depressive disorder, single episode, unspecified Qualifiers: Depression Type: unspecified Qualified Code(s): F32.9 - Major depressive disorder, single episode, unspecified Plan: Continue Bupropion XL 300 mg QD and Quetiapine 25 mg Q HS although she states that she hardly has had to take her Seroquel lately Follow up with her therapist regularly as scheduled? (9) Breast cancer screening by mammogram: Code(s): Z. - Encounter for screening mammogram for malignant neoplasm of breast Plan: Will send patient for annual mammogram - this will be her initial/baseline screen Plan Follow up in 6 months Orders: Orders MM tomosynthesis screening BI 05/25/23 Z12. - Encounter for screening mammogram for malignant neoplasm of breast Medications: New albuterol sulfate 90 mcg/actuation (Ventolin HFA) 2 puffs inhalation Q6H 30 days PRN 8.5 grams 1RF shortness of breath or wheezing Refilled bupropion HCl 300 mg PO QAM 90 days 90 tabs 1RF F32.9 - Major depressive disorder, single episode, unspecified, F41.9 - Anxiety disorder, unspecified Coding Level of Care Code Est Pt Prev Care 40-64y(96474) Diagnoses Annual physical exam Z00.00 Elevated blood pressure reading R03.0 Strabismus H50.9 Vitamin D deficiency E55.9 Positive MARIAN (antinuclear antibody) R76.8 Ex-smoker Z87.891 Anxiety F41.9 Depression, unspecified depression type F32.9 Depression Type: unspecified Breast cancer screening by mammogram Z12. Additional Codes STEPHANIE-7 Assessment Billing - STEPHANIE-7 Assessment Tool: STEPHANIE-7 Assessment 47610 ([id number])
[2023-05-25 15:08] VITALS: BP 128/80; PULSE 83; O2SAT 98; BMI 29.1
== END 2023-05-25 16:07 | disposition home or self-care (01) ==
PROVIDERS: PCP Internal Medicine; Visit Provider Internal Medicine
DX: Z00.00 Encounter for general adult medical examination without abnormal findings (principal); R03.0 Elevated blood-pressure reading, without diagnosis of hypertension; H50.9 Unspecified strabismus; E55.9 Vitamin D deficiency, unspecified; R76.8 Other specified abnormal immunological findings in serum; Z87.891 Personal history of nicotine dependence; F41.9 Anxiety disorder, unspecified; F32.9 Major depressive disorder, single episode, unspecified; Z12.31 Encounter for screening mammogram for malignant neoplasm of breast
CPT/HCPCS: 99396

== ENCOUNTER 2023-06-08 08:37 | Outpatient (REF) | payer OTHER, SELFPAY ==
[2023-06-08 08:47] LABS: MANUAL DIFF FLAG NO
[2023-06-08 10:12] LABS: Basophils Absolute Auto 0.1 X10*3/uL (0.0-0.2); Basophils Percent Auto 0.8 % (0-2); Eosinophils Absolute Auto 0.3 X10*3/uL (0.0-0.4); Eosinophils Percent Auto 3.6 % (0-4); Hematocrit 42.3 % (37.0-47.0); Hemoglobin 13.8 g/dl (12.0-16.0); Imm Gran Abs Auto 0.01 X10*3/uL (0.00-0.03); Imm Gran Pct Auto 0.1 % (0.0-0.4); Lymphocytes Absolute Auto 2.1 X10*3/uL (1.2-4.9); Mean Corpuscular HGB Conc 32.6 g/dl (31.0-35.0); Mean Corpuscular Hemoglobin 29.6 pg (27.0-33.0); Mean Corpuscular Volume 90.6 fL (80.0-98.0); Mean Platelet Volume 10.5 fL (9.4-12.3); Monocytes Absolute Auto 0.9 X10*3/uL (0.1-1.2); Monocytes Percent Auto 11.6 % (2-11); Neutrophils Absolute Auto 4.2 x10*3/uL (2.0-8.3); Neutrophils Percent Auto 55.9 % (45-73); Platelet Count 359 X10*3/uL (160-400); Red Blood Count 4.67 X10*6/uL (4.20-5.50); Red Cell Distribution Width 13.8 % (11.0-16.0); White Blood Count 7.5 X10*3/uL (4.8-10.8)
[2023-06-08 11:00] LABS: Alanine Aminotransferase 26 U/L (0-31); Albumin Level 4.1 g/dL (3.5-5.0); Alkaline Phosphatase 82 U/L (39-117); Anion Gap 11 (12-20); Aspartate Amino Transferase 22 U/L (5-31); Bilirubin Total 0.2 mg/dL (0.0-1.0); Blood Urea Nitrogen 12 mg/dL (9-16); Calcium 9.5 mg/dL (8.4-10.2); Carbon Dioxide 27 mmol/L (22-29); Chloride 104 mmol/L (96-108); Cholesterol 189 mg/dL (<200); Estimated Glomerular Filt Rate > 60; Glucose Fasting 83 mg/dL (60-99); HDL Cholesterol 63 mg/dL (>40); LDL Cholesterol Calculated 115 mg/dL (<100); Potassium 3.9 mmol/L (3.3-5.1); Sodium 138 mmol/L (135-145); Total Protein 7.7 g/dL (6.5-8.0); Triglycerides 58 mg/dL (<150)
[2023-06-08 11:02] LABS: TSH reflex Free T4 1.67 uIU/mL (0.32-4.0); Vitamin D 25-OH Total 51.7 ng/mL (>30)
== END 2023-06-08 08:38 | disposition home or self-care (01) ==
LOC: HO.LAB 08:37
PROVIDERS: PCP Internal Medicine; Visit Provider Internal Medicine
DX: Z00.00 Encounter for general adult medical examination without abnormal findings (principal); E55.9 Vitamin D deficiency, unspecified; E78.00 Pure hypercholesterolemia, unspecified
CPT/HCPCS: 36415; 80053; 80061; 82306; 84443; 85025

== ENCOUNTER 2023-06-29 12:58 | Outpatient (REF) | payer OTHER, SELFPAY ==
--- NOTE | ~2023-06-29 | MM_ITS ---
EXAMINATION: MM SCREENING DIGITAL BREAST TOMOSYNTHESIS, BILATERAL CLINICAL INFORMATION: Screening. Asymptomatic. COMPARISON: Mammography: This is a baseline mammogram. TECHNIQUE: Digital breast tomosynthesis is performed in both the craniocaudal and mediolateral oblique views along with computer-aided detection (CAD). Synthesized 2D images are generated from the tomosynthesis. FINDINGS: The breasts are heterogeneously dense, which may obscure small masses (ACR BI-RADS breast composition Category c). There are numerous loosely grouped calcifications in the upper outer quadrant of the right breast which warrant additional mammographic imaging with magnification. In the left breast, there are no significant masses, abnormal calcifications, or other abnormalities. MM/MM tomosynthesis screening BI IMPRESSION: Additional mammographic imaging advised for right breast calcifications. No mammographic signs of malignancy left breast. ASSESSMENT: BI-RADS BI-RADS 0 - Incomplete: Needs additional Imaging. RECOMMENDATION: Additional views of the right breast. Radiology department staff will contact the patient for additional imaging. Additional Imaging required This examination should not preclude the clinical evaluation of a suspicious palpable abnormality. This patient's information was entered into a reminder system with a target due date for their next mammogram.
== END 2023-06-29 12:59 | disposition home or self-care (01) ==
LOC: HO.MAMMO 12:58
PROVIDERS: PCP Internal Medicine; Visit Provider Internal Medicine
DX: Z12.31 Encounter for screening mammogram for malignant neoplasm of breast (principal)
CPT/HCPCS: 77063; 77067

== ENCOUNTER → 2023-06-29 13:15 | Outpatient (BNV) | payer OTHER, SELFPAY | PROVIDERS: PCP Internal Medicine; Visit Provider Radiology Diagnostic Radiology | DX: Z12.31 Encounter for screening mammogram for malignant neoplasm of breast (principal) | CPT/HCPCS: 77063; 77067 ==

== ENCOUNTER → 2023-07-20 08:30 | Outpatient (BNV) | payer OTHER, SELFPAY | PROVIDERS: Visit Provider Radiology Diagnostic Radiology | DX: R92.1 Mammographic calcification found on diagnostic imaging of breast (principal) | CPT/HCPCS: 77065 ==

== ENCOUNTER 2023-07-20 08:38 | Outpatient (REF) | payer OTHER, SELFPAY ==
--- NOTE | ~2023-07-20 | MM_ITS ---
EXAMINATION: MM DIAGNOSTIC DIGITAL MAMMOGRAPHY, RIGHT CLINICAL INFORMATION: Evaluate loosely grouped calcifications right breast mid and upper outer quadrant seen on baseline screening exam COMPARISON: Mammography: Baseline exam 06/29/2023 TECHNIQUE: Digital mammography is performed in the following views: 2-D spot magnification right CC x2, and right ML x2 views were obtained. FINDINGS: The breasts are heterogeneously dense, which may obscure small masses (ACR BI-RADS breast composition Category c). Calcifications which are loosely grouped in the mid and outer quadrant right breast all appear to layer linearly and teacup on the true lateral projections, consistent with benign milk of calcium. No suspicious tightly grouped pleomorphic calcifications identified. Findings are benign. Results are provided to the patient at time of visit by the technologist. MM/MM added views RT IMPRESSION: Benign milk of calcium right breast mid, upper and outer quadrants. Findings are benign. No further follow-up recommended. Recommend the patient return to routine annual screening mammography. ASSESSMENT: BI-RADS BI-RADS 2 - Benign Findings RECOMMENDATION: 1 year F/U This patient's information was entered into a reminder system with a target due date for their next mammogram.
== END 2023-07-20 08:39 | disposition home or self-care (01) ==
LOC: HO.MAMMO 08:38
PROVIDERS: Visit Provider Internal Medicine
DX: R92.1 Mammographic calcification found on diagnostic imaging of breast (principal)
CPT/HCPCS: 77065

== ENCOUNTER 2023-11-21 10:27 | Outpatient (AMB) | payer OTHER, SELFPAY ==
--- NOTE | 2023-11-21 10:30 | A.OFFVIS_ITS ---
Intake Visit Reasons: 6m/PVR Intake Note: Patient presents today for follow up on: Recurrent uti and microhematuria Urology Medications: none Blood Thinner: none PVR: 0ml's Mission Commander Required: No Accompanied by: Self / Same As Patient Allergies No Known Allergies [No Known Allergies*] Allergy (Verified 11/21/23 10:52) Medication List - Last Reconciled 11/21/23 by NICKI Elena albuterol sulfate 90 mcg/actuation (Ventolin HFA) 2 puffs inhalation Q6H PRN 30 days bupropion HCl XL 300 mg PO QAM 90 days cholecalciferol (vitamin D3) 50 mcg PO DAILY inhalational spacing device (Raymundo Aerosol [place] Enhancer spacer) As directed lorazepam 0.5 mg PO TID PRN 30 days quetiapine 25 mg PO BEDTIME 90 days HPI Comments Details: Elyssa is a pleasant 43-year-old female patient of Dr. Foley. She has a past medical history of anxiety, depression, insomnia, positive MARIAN, and vitamin-D deficiency. She presents to the office today for follow-up of her recurrent UTI's. When asked patient reports to be doing and feeling well. She currently denies any bothersome urinary issues or concerns. She denies any UTI like symptoms. She reports since her last office visit here approximately 6 months ago she has not had any urinary tract infections. Patient had previously been on low-dose suppression however has since been able to discontinue and has had no UTI like symptoms. In office urinalysis results reviewed with the patient today. PVR 0ml's. When asked she currently denies urinary urgency, urinary frequency, incontinence, nocturia, hematuria, dysuria, foul smelling urine, changes to urinary stream, flank pain, fever, and or chills. She is happy with her current voiding parameters. Previous workup has included a retroperitoneal ultrasound noting no hydronephrosis or renal calculi. The bladder is well distended and unremarkable. She otherwise denies any issues or concerns at this time. [facility] Medical History History of eye muscle disorder Vitamin D deficiency Overweight (BMI 25.0-29.9) Positive MARIAN (antinuclear antibody) Elevated C-reactive protein (CRP) Depression Insomnia Anxiety Arthralgia Fatigue No history of diphtheria, pertussis, and tetanus (DPT) vaccination Surgical History No significant past surgical history Family History Father No problems noted. 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 Cognitive needs: No Hearing needs: No Vision needs: Yes (glasses) Review of Systems Const All systems reviewed & are unremarkable except as noted in HPI and below Reports as per HPI Eyes Reports no additional complaints ENT Reports no additional complaints Card Reports no additional complaints Resp Reports no additional complaints GI Reports no additional complaints Reports as per HPI Musc Reports no additional complaints Neuro Reports no additional complaints Psych Reports as per HPI Physical Exam Const General: cooperative, healthy appearing, comfortable, no acute distress, well developed, alert and awake Orientation/consciousness: patient oriented x3 Limitations: no limitations HEENT Head: Yes normal to inspection, Yes normocephalic and Yes atraumatic Ears: hearing grossly normal bilaterally Eyes General: appearance normal, both eyes and all related structures Neck Neck: Yes normal visual inspection and Yes trachea midline Chest Chest palpation & inspection: normal inspection of the chest Resp Effort & Inspection: normal respiratory effort and able to speak in complete sentences Cardio Rate: regular rate GI Inspection: Yes normal to inspection General: Yes no CVA tenderness Back/Spine/Pelvis Back: no CVA tenderness Skin General skin exam: no rashes or lesions noted Neuro General: patient oriented x3 Extrem General: Yes normal to inspection Psych Appearance: grossly normal and well kempt Mental Status: mental status grossly normal Speech and movement: Normal speech and movement present and Clear speech present Affect: normal affect Attitude: cooperative Thought process: Normal thought process present Thought content: Normal thought content present Insight: Good insight present (Psych) Judgement: Good judgement present (Psych) Office Procedures Post Void Residual Post Residual Void Post Void Residual (PVR): 0 [id number] Void Residual by ultrasound Results AMB Urinalysis, Automated UA Leukoctes 0 Yasmin/uL Last Edit by Salvador Magana on 11/21/23 10:42 UA Nitrite Last Edit by Salvador Magana on 11/21/23 10:42 UA Urobilinogen 0.2 mg/dL Last Edit by Salvador Magana on 11/21/23 10:42 UA Protein 0 mg/dL Last Edit by Salvador Magana on 11/21/23 10:42 UA pH 7.5 Last Edit by Salvador Magana on 11/21/23 10:42 UA Blood 0 Sandoval/uL Last Edit by Salvador Magana on 11/21/23 10:42 UA Specific [place] 1.005 Last Edit by Salvador Magana on 11/21/23 10:42 UA Ketone Last Edit by Salvador Magana on 11/21/23 10:42 UA Bilirubin 0 mg/dL Last Edit by Salvador Magana on 11/21/23 10:42 UA Glucose 0 mg/dL Last Edit by Salvador Magana on 11/21/23 10:42 Results Reviewed Results Reviewed: Laboratory Last Values Urine pH (Auto) 7.5 11/21/23 10:36 Specific [place] (Auto) 1.005 11/21/23 10:36 Urine Protein (Auto) 0 mg/dL 11/21/23 10:36 Glucose (UA)(Auto) 0 mg/dL 11/21/23 10:36 Urine Blood (Auto) 0 Sandoval/uL 11/21/23 10:36 Urine Bilirubin (Auto) 0 mg/dL 11/21/23 10:36 Urine Urobilinogen (Auto) 0.2 mg/dL 11/21/23 10:36 Leukocyte Esterase (Auto) 0 Yasmin/uL 11/21/23 10:36 Assessment & Plan Assessment & Plan (1) Microhematuria: Code(s): R31.29 - Other microscopic hematuria Category: Medical (2) Recurrent UTI: Code(s): N39.0 - Urinary tract infection, site not specified Category: Medical Plan In office urinalysis results reviewed with the patient today; as noted above PVR 0 mL Discussed UTI prevention with D mannose supplement, vitamin-C, increasing fluid intake, behavioral therapy with timed voiding, perineal hygiene and postcoital voiding, and management of constipation with stool softeners and increased fiber intake. She is happy with her current voiding parameters. Patient currently denies any bothersome urinary issues or concerns She denies any UTI like symptoms. Will continue with surveillance monitoring. Discussed possible near future in office cystoscopy if symptoms arise. Follow-up 1 year PVR; if not sooner with any issues, concerns, and or questions. Orders: Orders AMB Urinalysis Automated Today Z13.9 - Encounter for screening, unspecified AMB Post Void Residual by ultrasound Today R33.9 - Retention of urine, unspecified Patient Instructions: The patient had an opportunity to ask questions regarding the treatment plan. All questions were answered. Physical exam, labs, and imaging were discussed and reviewed in detail. As well as risks, benefits, and discussion of treatment choices. No major barriers to understanding were identified. The patient expressed understanding and agreement with the above treatment plan. The patient was made aware they should contact our office by phone for worsening of their current condition, the appearance of new symptoms, or with any questions or concerns. Compliance is encouraged with any medications and follow up testing that is ordered. It is a privilege to be allowed the opportunity to participate in? your urological care.? Again, if you have any questions or concerns If you have any questions or concerns please do not hesitate to contact me. The office is [phone]. This note is constructed using voice recognition software. While every effort has been made to ensure accuracy slip injector and applicator errors may have been included. Yours sincerely, NICKI Elena Coding Level of Care Code Est Pt Level 3 (88362) Diagnoses Microhematuria R31.29 Recurrent UTI N39.0 CPT Codes Post Residual Void - PVR CPT Code: 50306-Itso Void Residual by ultrasound ([id number])
== END 2023-11-21 10:50 | disposition home or self-care (01) ==
PROVIDERS: PCP Internal Medicine; Visit Provider Nurse Practitioner Family
DX: R31.29 Other microscopic hematuria (principal); N39.0 Urinary tract infection, site not specified; Z13.9 Encounter for screening, unspecified
CPT/HCPCS: 99213

== ENCOUNTER → 2023-11-21 10:27 | Outpatient (BNVA) | payer OTHER, SELFPAY | PROVIDERS: PCP Internal Medicine; Visit Provider Nurse Practitioner Family | DX: R31.29 Other microscopic hematuria (principal); N39.0 Urinary tract infection, site not specified; R33.9 Retention of urine, unspecified | CPT/HCPCS: 51798; 81003 ==

== ENCOUNTER 2023-12-07 14:22 | Outpatient (AMB) | payer OTHER, SELFPAY ==
--- NOTE | 2023-12-07 14:30 | AM.OFFWIN_ITS ---
Intake Vital Signs 12/07/23 14:31 Height 5 ft 5 in Weight 181 lb BMI 30.1 BP 126/88 Blood Pressure Location Lt brachial Position Sitting Pulse 93 Pulse Source Pulse Oximeter Temp 98.4 F Temp Source Oral Pulse Oximetry (%) 98 Oxygen Delivery Method Room Air Intake Visit Reasons: EP ?UTI Intake Note: pt c/o urinary urgency and discomfort, burning. Started 2 days go. No fever Patient Tobacco Use Status: Former Tobacco user Allergies No Known Allergies [No Known Allergies*] Allergy (Verified 12/07/23 14:31) Medication List - Last Reconciled 12/07/23 by Ron Schwartz MD albuterol sulfate 90 mcg/actuation (Ventolin HFA) 2 puffs inhalation Q6H PRN 30 days bupropion HCl XL 300 mg PO QAM 90 days cholecalciferol (vitamin D3) 50 mcg PO DAILY inhalational spacing device (Raymundo Aerosol [place] Enhancer spacer) As directed lorazepam 0.5 mg PO TID PRN 30 days quetiapine 25 mg PO BEDTIME 90 days Do you need a note to return to daycare/school/sports/work: No HPI EP ?UTI HPI Details Chief possible urinary tract infection Symptoms present for the past 2 days Burning frequency Patient says that she has had urinary tract infection in the past and this is what it feels like She has a history of kidney infection as well, there is no back pain There is no fever no chills, some suprapubic discomfort is there, no nausea no vomiting UA does not show any sign of infection But based on patient's symptoms I have sent Macrobid 100 mg b.i.d. for 3 days PFSH Medical History History of eye muscle disorder Vitamin D deficiency Overweight (BMI 25.0-29.9) Positive MARIAN (antinuclear antibody) Elevated C-reactive protein (CRP) Depression Insomnia Anxiety Arthralgia Fatigue No history of diphtheria, pertussis, and tetanus (DPT) vaccination Surgical History No significant past surgical history Family History Father No problems noted. 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 Cognitive needs: No Hearing needs: No Vision needs: Yes (glasses) Review of Systems Const All systems reviewed & are unremarkable except as noted in HPI and below Physical Exam Vital Signs: Last Vital Signs Temp 98.4 F 12/07/23 14:31 Pulse 93 12/07/23 14:31 BP 126/88 12/07/23 14:31 Pulse Ox 98 12/07/23 14:31 Oxygen Delivery Method Room Air 12/07/23 14:31 BMI result Body Mass Index 30.1 Const General: no acute distress Orientation/consciousness: patient oriented x3 Eyes General: appearance normal, both eyes and all related structures Resp Effort & Inspection: normal respiratory effort and able to speak in complete sentences GI Other: Mild suprapubic discomfort with pressure Neuro General: patient oriented x3 Psych Mental Status: mental status grossly normal Results AMB Urinalysis, Automated UA Leukoctes 0 Yasmin/uL Last Edit by Ced Milan CMA on 12/07/23 14:41 UA Nitrite Negative Last Edit by Ced Milan CMA on 12/07/23 14:41 UA Urobilinogen 0.2 mg/dL Last Edit by Ced Milan CMA on 12/07/23 14:41 UA Protein 0 mg/dL Last Edit by Ced Milan CMA on 12/07/23 14:41 UA pH 6.0 Last Edit by Ced Milan CMA on 12/07/23 14:41 UA Blood 0 Sandoval/uL Last Edit by Ced Milan CMA on 12/07/23 14:41 UA Specific [place] 1.005 Last Edit by Ced Milan CMA on 12/07/23 14:41 UA Ketone Negative Last Edit by Ced Milan CMA on 12/07/23 14:41 UA Bilirubin 0 mg/dL Last Edit by Ced Milan CMA on 12/07/23 14:41 UA Glucose 0 mg/dL Last Edit by Ced Milan CMA on 12/07/23 14:41 Results Reviewed Results Reviewed: Laboratory Last Values Urine pH (Auto) 6.0 12/07/23 14:40 Specific [place] (Auto) 1.005 12/07/23 14:40 Urine Protein (Auto) 0 mg/dL 12/07/23 14:40 Glucose (UA)(Auto) 0 mg/dL 12/07/23 14:40 Urine Ketones (Auto) Negative 12/07/23 14:40 Urine Blood (Auto) 0 Sandoval/uL 12/07/23 14:40 Urine Nitrite (Auto) Negative 12/07/23 14:40 Urine Bilirubin (Auto) 0 mg/dL 12/07/23 14:40 Urine Urobilinogen (Auto) 0.2 mg/dL 12/07/23 14:40 Leukocyte Esterase (Auto) 0 Yasmin/uL 12/07/23 14:40 Assessment & Plan Assessment & Plan (1) Dysuria: Code(s): R30.0 - Dysuria Plan Chief possible urinary tract infection Symptoms present for the past 2 days Burning frequency Patient says that she has had urinary tract infection in the past and this is what it feels like She has a history of kidney infection as well, there is no back pain There is no fever no chills, some suprapubic discomfort is there, no nausea no vomiting UA does not show any sign of infection But based on patient's symptoms I have sent Macrobid 100 mg b.i.d. for 3 days Orders: Orders AMB Urinalysis Automated Today Bing Ibarra PA-C Z13.9 - Encounter for scre ening, unspecified Medications: New nitrofurantoin monohyd/m-cryst 100 mg (Macrobid) must administer with a meal/food 100 mg PO Q12H 6 caps 0RF 3 days Ron Schwartz MD Coding Level of Care Code Est Pt Level 3 (08251) Diagnoses Dysuria R30.0
[2023-12-07 14:31] VITALS: BP 126/88; PULSE 93; TEMP 36.9; O2SAT 98; BMI 30.1
== END 2023-12-07 14:55 | disposition home or self-care (01) ==
PROVIDERS: PCP Internal Medicine; Visit Provider Internal Medicine
DX: Z13.9 Encounter for screening, unspecified (principal); R30.0 Dysuria
CPT/HCPCS: 81003; 99213

== ENCOUNTER 2024-03-10 11:46 | Outpatient (AMB) | payer OTHER, SELFPAY ==
--- NOTE | 2024-03-10 12:09 | AM.OFFWIN_ITS ---
Intake Vital Signs 03/10/24 12:10 Height 5 ft 5 in BP 122/80 Blood Pressure Location Rt brachial Position Sitting Pulse 80 Pulse Source Pulse Oximeter Pulse Oximetry (%) 98 Intake Visit Reasons: EP-UTI Intake Note: pt is here for UTI, patient states shes having frequency, not emptying out bladder, and burning Patient Tobacco Use Status: Former Tobacco user Allergies No Known Allergies [No Known Allergies*] Allergy (Verified 03/10/24 12:10) Do you need a note to return to daycare/school/sports/work: No HPI HPI Comments History of Present Illness Details Patient is a 43-year-old female complaining of a few days of burning with urination, for increased frequency of urination and feeling like she is not completely emptying her bladder. She denies any fevers, low back pain or blood in her urine or history of kidney stones. Patient is asking for Diflucan because she says she typically gets a yeast infection after taking antibiotics. [facility] Medical History History of eye muscle disorder Vitamin D deficiency Overweight (BMI 25.0-29.9) Positive MARIAN (antinuclear antibody) Elevated C-reactive protein (CRP) Depression Insomnia Anxiety Arthralgia Fatigue No history of diphtheria, pertussis, and tetanus (DPT) vaccination Surgical History No significant past surgical history Family History Father No problems noted. 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 Cognitive needs: No Hearing needs: No Vision needs: Yes (glasses) Review of Systems Const All systems reviewed & are unremarkable except as noted in HPI and below Physical Exam Vital Signs: Last Vital Signs Pulse 80 03/10/24 12:10 BP 122/80 03/10/24 12:10 Pulse Ox 98 03/10/24 12:10 Const General: cooperative, healthy appearing, comfortable and no acute distress Orientation/consciousness: patient oriented x3 HEENT Head: Yes normal to inspection Ears: hearing grossly normal bilaterally General nose exam: Normal external nose present Face and sinus: Yes normal facial exam Neck Neck: Yes normal visual inspection, Yes trachea midline and Yes supple Resp Effort & Inspection: normal respiratory effort and able to speak in complete sentences Skin General skin exam: no rashes or lesions noted Neuro General: patient oriented x3 Psych Appearance: grossly normal Speech and movement: Normal speech and movement present Attitude: cooperative Results AMB Urinalysis, Automated UA Leukoctes 0 Yasmin/uL Last Edit by Isaias Mckenzie CMA on 03/10/24 12:17 UA Nitrite Negative Last Edit by Isaias Mckenzie CMA on 03/10/24 12:17 UA Urobilinogen 0.2 mg/dL Last Edit by Isaias Mckenzie CMA on 03/10/24 12 :17 UA Protein 0 mg/dL Last Edit by Isaias Mckenzie CMA on 03/10/24 12:17 UA pH 6.0 Last Edit by Isaias Mckenzie CMA on 03/10/24 12:17 UA Blood 0 Sandoval/uL Last Edit by Isaias Mckenzie CMA on 03/10/24 12:17 UA Specific [place] 1.010 Last Edit by Isaias Mckenzie CMA on 03/10/24 12:17 UA Ketone Negative Last Edit by Isaias Mckenzie CMA on 03/10/24 12:17 UA Bilirubin 0 mg/dL Last Edit by Isaias Mckenzie CMA on 03/10/24 12:17 UA Glucose 0 mg/dL Last Edit by Isaias Mckenzie CMA on 03/10/24 12:17 Assessment & Plan Assessment & Plan (1) Urinary tract infection: Code(s): N39.0 - Urinary tract infection, site not specified Qualifiers: Urinary tract infection type: acute cystitis Hematuria presence: without hematuria Qualified Code(s): N30.00 - Acute cystitis without hematuria Plan: We will treat based on symptoms as urinalysis is negative for infection or blood. Sent Diflucan, explained how to use it. Recommended she follow up with her PCP if no improvement in her symptoms after she finishes the antibiotics. Plan see above Orders: Orders AMB Urinalysis Automated Today Z13.9 - Encounter for screening, unspecified Medications: New fluconazole may repeat second dose 72 hrs after first dose if symptoms persist 150 mg PO Q3D 2 tabs 0RF cefuroxime axetil 500 mg PO Q12H 10 tabs 0RF Coding Level of Care Code Est Pt Level 3 (09116) Diagnoses Acute cystitis without hematuria N30.00 Urinary tract infection type: acute cystitis Hematuria presence: without hematuria
[2024-03-10 12:10] VITALS: BP 122/80; PULSE 80; O2SAT 98
== END 2024-03-10 12:33 | disposition home or self-care (01) ==
PROVIDERS: PCP Internal Medicine; Visit Provider Physician Assistant
DX: N30.00 Acute cystitis without hematuria (principal); Z13.9 Encounter for screening, unspecified

== ENCOUNTER → 2024-03-10 11:46 | Outpatient (BNVA) | payer OTHER, SELFPAY | PROVIDERS: PCP Internal Medicine; Visit Provider Physician Assistant | DX: N30.00 Acute cystitis without hematuria (principal) | CPT/HCPCS: 81003 ==

== ENCOUNTER 2024-03-25 11:49 | Outpatient (REF) | payer OTHER, SELFPAY ==
[2024-03-25 12:39] LABS: Appearance Urine Clear; Color Urine Yellow; Glucose Urine UA Negative (Negative); Leukocyte Esterase Urine Trace (Negative); Nitrite Urine Negative (Negative); Specific Gravity - Urine <= 1.005 (1.005-1.025); UMIC TRIGGER UA YES; Urine Blood Negative (Negative); Urine Ketones Negative (Negative); Urine Protein Negative (Neg-Trace)
[2024-03-25 12:46] LABS: Bacteria Urine None Seen (None Seen); Hyaline Casts Urine 0-2 /LPF (0-2); RBC Urine 0-2 /HPF (0-2); Squamous Epithelial Cell Urine 0-2 /HPF (0-2); WBC Urine 0-5 /HPF (0-5)
== END 2024-03-25 11:50 | disposition home or self-care (01) ==
LOC: HO.LAB 11:49
PROVIDERS: PCP Internal Medicine; Visit Provider Nurse Practitioner Family
DX: R33.9 Retention of urine, unspecified (principal); R35.0 Frequency of micturition; R30.0 Dysuria; R39.14 Feeling of incomplete bladder emptying; N39.0 Urinary tract infection, site not specified
CPT/HCPCS: 81001; 87086

== ENCOUNTER 2024-05-30 13:04 | Outpatient (AMB) | payer OTHER, SELFPAY ==
[2024-05-30 13:15] VITALS: BP 122/84; PULSE 84; O2SAT 99; BMI 31.5
--- NOTE | 2024-05-30 13:15 | MHC.PC.OV ---
Vital Signs 05/30/24 13:15 Height 5 ft 5 in Weight 189 lb 4 oz BMI 31.5 BP 122/84 Blood Pressure Location Lt brachial Position Sitting Pulse 84 Pulse Source Pulse Oximeter Pulse Oximetry (%) 99 Oxygen Delivery Method Room Air Intake Visit Reasons: PE Intake Note: Patient is here today for a physical. International Organizer Required: No City Maintenance Manager: Not Required per policy Accompanied by: Self / Same As Patient Allergies No Known Allergies [No Known Allergies*] Allergy (Verified 05/30/24 13:38) Medication List - Last Reconciled 05/30/24 by John Paul Foley MD albuterol sulfate 90 mcg/actuation (Ventolin HFA) 2 puffs inhalation Q6H PRN 30 days bupropion HCl XL 300 mg PO QAM 90 days cholecalciferol (vitamin D3) 50 mcg PO DAILY inhalational spacing device ([employer] Aerosol [place] Enhancer spacer) As directed lorazepam 0.5 mg PO TID PRN 30 days norethindrone (contraceptive) 0.35 mg PO DAILY Tobacco use date assessed: 05/30/24 Dental Screening Dental Screen Date: 05/25/23 Did you have a dental visit in the last 12 months?: Yes Did you have a dental problem in the last 6 months where you did not have access to dental care?: No Was dental information given to patient?: Patient has dentist HPI PE HPI Details Patient comes in today for her annual physical examination States that she feels okay She denies any headaches or dizziness Denies any chest pains, no SOB No nausea/vomiting, no abdominal pain No change in bowel habits noted She denies any acute urinary symptoms [facility] [place] for [facility] gynecology exam and pap smear and states that she is up-to-date with her exam She had her annual mammogram done last June 2023 and is scheduled for this year's test on 07/04/2024 [facility] Medical History (Updated 05/30/24 @ 13:59 by John Paul Foley MD) Obesity (BMI 30-39.9) Strabismus History of eye muscle disorder Vitamin D deficiency Overweight (BMI 25.0-29.9) Positive MARIAN (antinuclear antibody) Elevated C-reactive protein (CRP) Depression Insomnia Anxiety Arthralgia Fatigue No history of diphtheria, pertussis, and tetanus (DPT) vaccination Surgical History No significant past surgical history Family History Father No problems noted. 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 1. Little interest or pleasure in doing things: not at all 2. Feeling down, depressed, or hopeless: not at all 3. Trouble falling or staying asleep, or sleeping too much: not at all 4. Feeling tired or having little energy: not at all 5. Poor appetite or overeating: not at all 6. Feeling bad about yourself - or that you are a failure or have let yourself or your family down: not at all 7. Trouble concentrating on things, such as reading the newspaper or watching television: not at all 8. Moving or speaking so slowly that other people could have noticed. Or the opposite - being so fidgety or restless that you have been moving around a lot more than usual: not at all 9. Thoughts that you would be better off or of hurting yourself in some way: not at all Total score: 0 Depression Screening Interpretation: Negative Depression Screening Done: Yes 66546 - PHQ-9 Billing: Yes Source: Developed by Drs. Leo Liang, Juliana Sharma, Anshu Pierre and colleagues, with an educational ernie from [employer]. Thrive Questionnaire Date Thrive assessed: 05/30/24 I am a: Patient What is your living situation today?: I have a steady place to live Within the past 12 months, did the food you bought not last and you didn't have the money to get more?: Never true Within the past 12 months, did you worry whether your food would run out before you got money to buy more?: Never true Do you have trouble paying for medicines?: No Do you have trouble getting transportation to medical appointments?: No Do you have trouble paying your heating and electricity bill?: No Do you have trouble taking care of your child, family member or friend?: No Do you have trouble with day-to-day activities such as bathing, preparing meals, shopping, managing finances, etc.?: No Are you currently unemployed and looking for a job?: No Are you interested in more education?: No Please select the resources that you would like help with: None Currently or been in a relationship where the following occur: I choose not to answer THRIVE Score: 0 AUDIT C Alcohol Use Questionnaire (AUDIT-C) 1. How often do you have a drink containing alcohol?: Monthly or less 2. How many drinks containing alcohol do you have on a typical day when you are drinking?: 1 or 2 3. How often do you have six or more drinks on one occasion?: Never Total Score: 1 Score Reviewed/Action Taken: Yes STEPHANIE-7 AMB Questionnaire STEPHANIE-7 Date STEPHANIE - 7 assessed: 05/30/24 Feeling nervous, anxious, or on edge: 3 = Nearly every day Not being able to stop or control worryin = Several days Worrying too much about different things: 1 = Several days Trouble relaxin = Several days Being so restless that it is hard to sit still: 0 = Not at all Becoming easily annoyed or irritable: 0 = Not at all Feeling afraid as if something awful might happen: 0 = Not at all Total STEPHANIE-7 score (0-4 normal; 5-9 mild; 10-14 moderate; 15-21 severe): 6 Source: Developed by Drs. Leo Liang, Juliana Sharma, Anshu Pierre and colleagues, with an educational ernie from [employer]. Review of Systems Const Denies chills, Denies fatigue, Denies fever(s), Denies headache(s), Denies malaise and Reports weight gain Eyes Denies blurry vision, Denies change in vision, Denies irritation and Denies itchy eyes ENT Denies dysphagia, Denies dizziness, Denies otalgia, Denies headache(s), Denies nasal congestion, Denies neck pain, Denies odynophagia, Denies sinus pain and Denies sore throat Card Denies chest pain, Denies rapid heart rate, Denies irregular heart rhythm, Denies palpitations and Denies dyspnea Resp Denies chest congestion, Denies cough, Denies dyspnea and Denies wheezing GI Denies abdominal pain, Denies bloating, Denies constipation, Denies dysphagia, Denies heartburn, Denies diarrhea, Denies nausea, Denies odynophagia and Denies vomiting Denies hematuria, Denies urinary frequency, Denies dysuria, Denies urinary incontinence and Denies urinary urgency Musc Denies back pain, Denies arthralgias, Denies joint swelling, Denies muscle weakness and Denies neck pain Skin/Breast Denies breast pain, Denies breast mass, Denies change in pigmentation, Denies lesions, Denies rash and Denies unusual bruising Neuro Denies dizziness, Denies headache(s) and Denies paresthesias Psych Denies anxiety and Denies depression Endo Denies fatigue and Denies palpitations Obey/Lymph Denies easy bruising Aller/Immun Denies itchy eyes and Denies wheezing Physical exam (Primary Care) Vital Signs: Last Vital Signs Pulse 84 05/30/24 13:15 BP 122/84 05/30/24 13:15 Pulse Ox 99 05/30/24 13:15 Oxygen Delivery Method Room Air 05/30/24 13:15 BMI result Body Mass Index 31.5 Tobacco/Smoking Status: Tobacco use Status Tobacco use date assessed 05/30/24 05/30/24 13:16 Patient Tobacco Use Status Former Tobacco user 05/30/24 13:16 Tobacco use type Cigarette 05/30/24 13:16 e-Cigarette/Vaping Use Never Used 05/30/24 13:16 PHQ-9: PHQ-9 Score PHQ-9: Total score 0 05/30/24 13:52 Depression Screening Interpretation: Negative Thrive Assessment: Date of Thrive Assessment Date Thrive assessed 05/30/24 05/30/24 13:17 Currently or been in a relationship where the following occur: I choose not to answer Const General: no acute distress, alert and awake Orientation/consciousness: patient oriented x3 HENMT Head: Yes normocephalic and Yes atraumatic Ears: external ears normal, TM's normal bilaterally and EAC's normal General nose exam: No nasal discharge present Face and sinus: Yes normal facial exam and Yes sinuses nontender Teeth and gingiva: dentition normal Throat: Yes posterior oropharynx normal and Yes tonsils normal (no TP congestion) Eyes Eyelids: Yes eyelids normal Conjunctivae: conjunctivae normal Pupils: Equal, round and reactive pupils present EOM: EOMs intact bilaterally Neck Neck: Yes no lymphadenopathy and Yes supple Thyroid: Thyroid normal (although it seems to be more prominent than normal on exam) and nontender Resp Auscultation: clear to auscultation bilaterally, no rales and no wheezes Cardio Rate: regular rate Rhythm: regular rhythm Heart sounds: no murmurs GI Palpation (GI): Soft to palpation, nontender and No hepatosplenomegaly present Auscultation: normal bowel sounds General: Yes no CVA tenderness Back/Spine/Pelvis Back: no CVA tenderness Thoracic/Lumbar Spine: thoracic and lumbar spine normal to inspection Skin Lesions: no lesions Rashes: no rashes Neuro General: patient oriented x3, moves all extremities, no focal motor deficits and CN's II-XI intact bilaterally Cranial nerves: Yes Equal, round and reactive pupils present Cognition (Neuro): normal cognition Gait exam (Neuro): Normal gait present Extrem General: Yes no clubbing, cyanosis or edema Coding Level of Care Code Est Pt Prev Care 40-64y(09064) Diagnoses Annual physical exam Z00.00 Strabismus H50.9 Vitamin D deficiency E55.9 Enlarged thyroid gland E04.9 Positive MARIAN (antinuclear antibody) R76.8 Anxiety F41.9 Depression, unspecified depression type F32.9 Depression Type: unspecified Ex-smoker Z87.891 Obesity (BMI 30-39.9) E66.9 Additional Codes PHQ-9 - 93017 - PHQ-9 Billing: Yes ([id number]) Assessment & Plan Assessment & Plan (1) Annual physical exam: Code(s): Z00.00 - Encounter for general adult medical examination without abnormal findings Category: Medical Plan: Check labs She is up-to-date with her annual mammogram and yearly gynecology exam and pap smear (2) Strabismus: Code(s): H50.9 - Unspecified strabismus Category: Medical Plan: S/P corrective eye muscle surgery of both eyes on 02/15/[address] Jimmie Soler - states that her vision and eye symptoms have all improved significantly with surgery Follow up with ophthalmology as scheduled or as needed (3) Vitamin D deficiency: Code(s): E55.9 - Vitamin D deficiency, unspecified Category: Medical Plan: Continue Vitamin D3 2000 units QD (4) Enlarged thyroid gland: Code(s): E04.9 - Nontoxic goiter, unspecified Category: Medical Plan: Discussed with patient that her thyroid gland appears prominent on exam today She has no tenderness noted and there are no nodules appreciated on exam of her thyroid, so this may not necessarily be enlarged and could be just positional Will check her TFTs HAYLEE Will also send patient for thyroid US for further evaluation - she is advised that if this comes out normal, then we do not need to continue checking this unless something changes in the future (5) Positive MARIAN (antinuclear antibody): Code(s): R76.8 - Other specified abnormal immunological findings in serum Category: Medical Plan: She was seen and evaluated by rheumatology back in 2020 - all work ups were negative and patient does not have any signs or symptoms of active CTD or lupus She was advised to just see rheumatology again for follow up on an as needed basis (6) Anxiety: Code(s): F41.9 - Anxiety disorder, unspecified Category: Medical Plan: Continue Bupropion XL 300 mg QD and Lorazepam 0.5 mg TID PRN Patient feels that her anxiety is well-controlled on her current Rx States that she has not needed to take her Lorazepam regularly and only on an as-needed basis Follow up with therapist/psychiatrist regularly as scheduled (7) Depression: Code(s): F32.9 - Major depressive disorder, single episode, unspecified Category: Medical Qualifiers: Depression Type: unspecified Qualified Code(s): F32.9 - Major depressive disorder, single episode, unspecified Plan: Continue Bupropion XL 300 mg QD and Quetiapine 25 mg Q HS although she states that she hardly has had to take her Seroquel lately Follow up with her therapist regularly as scheduled (8) Ex-smoker: Code(s): Z87.891 - Personal history of nicotine dependence Category: Social Hx Plan: Continue Albuterol HFA 1 to 2 inhalations Q 6 hours PRN (9) Obesity (BMI 30-39.9): Code(s): E66.9 - Obesity, unspecified Category: Medical Plan: Patient has gained over 14 pounds since this time last year States that she has not changed her diet, eating habits or lifestyles over the past year and she suspects that her current BCP has something to do with her weight gain and plans to discuss further with 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 Panel Fast Today E78.00 - Pure hypercholesterolemia, unspecified, Z00.00 - Encounter for general adult medical examination without abnormal findings TSH reflex Free T4 Today E78.00 - Pure hypercholesterolemia, unspecified, Z00.00 - Encounter for general adult medical examination without abnormal findings Vitamin D 25-OH Total Today E55.9 - Vitamin D deficiency, unspecified, Z00.00 - Encounter for general adult medical examination without abnormal findings Lipid Panel Today E78.00 - Pure hypercholesterolemia, unspecified, Z00.00 - Encounter for general adult medical examination without abnormal findings UA CC w/rflx Micro + Cult Today R30.0 - Dysuria, Z00.00 - Encounter for general adult medical examination without abnormal findings US thyroid Today E04.9 - Nontoxic goiter, unspecified
== END 2024-05-30 13:57 | disposition home or self-care (01) ==
PROVIDERS: PCP Internal Medicine; Visit Provider Internal Medicine
DX: Z00.00 Encounter for general adult medical examination without abnormal findings (principal); H50.9 Unspecified strabismus; E66.9 Obesity, unspecified; Z68.31 Body mass index [BMI] 31.0-31.9, adult; E55.9 Vitamin D deficiency, unspecified; E04.9 Nontoxic goiter, unspecified; R76.8 Other specified abnormal immunological findings in serum; F41.9 Anxiety disorder, unspecified; F32.9 Major depressive disorder, single episode, unspecified; Z87.891 Personal history of nicotine dependence

== ENCOUNTER → 2024-05-30 13:04 | Outpatient (BNVA) | payer OTHER, SELFPAY | PROVIDERS: PCP Internal Medicine; Visit Provider Internal Medicine | DX: Z00.00 Encounter for general adult medical examination without abnormal findings (principal); H50.9 Unspecified strabismus; E55.9 Vitamin D deficiency, unspecified; E04.9 Nontoxic goiter, unspecified; R76.8 Other specified abnormal immunological findings in serum; F41.9 Anxiety disorder, unspecified; F32.9 Major depressive disorder, single episode, unspecified; E66.9 Obesity, unspecified; Z68.31 Body mass index [BMI] 31.0-31.9, adult; Z79.899 Other long term (current) drug therapy; Z87.891 Personal history of nicotine dependence | CPT/HCPCS: 96127 ==

== ENCOUNTER 2024-06-18 15:57 | Outpatient (REF) | payer OTHER, SELFPAY | END 2024-06-18 15:58 | disposition home or self-care (01) | LOC: HO.US 15:57 | PROVIDERS: PCP Internal Medicine; Visit Provider Internal Medicine | DX: E04.9 Nontoxic goiter, unspecified (principal) | CPT/HCPCS: 76536 ==

== ENCOUNTER → 2024-06-18 15:58 | Outpatient (BNV) | payer OTHER, SELFPAY | PROVIDERS: PCP Internal Medicine; Visit Provider Radiology Diagnostic Radiology | DX: E04.9 Nontoxic goiter, unspecified (principal) | CPT/HCPCS: 76536 ==

== ENCOUNTER 2024-07-04 12:33 | Outpatient (REF) | payer OTHER, SELFPAY | END 2024-07-04 12:34 | disposition home or self-care (01) | LOC: HO.MAMMO 12:33 | PROVIDERS: PCP Internal Medicine; Visit Provider Internal Medicine | DX: Z12.31 Encounter for screening mammogram for malignant neoplasm of breast (principal) | CPT/HCPCS: 77063; 77067 ==

== ENCOUNTER → 2024-07-04 12:45 | Outpatient (BNV) | payer OTHER, SELFPAY | PROVIDERS: PCP Internal Medicine; Visit Provider Internal Medicine | DX: Z12.31 Encounter for screening mammogram for malignant neoplasm of breast (principal) | CPT/HCPCS: 77063; 77067 ==

== ENCOUNTER 2024-09-18 14:38 | Outpatient (REF) | payer OTHER, SELFPAY ==
[2024-09-18 14:52] LABS: MANUAL DIFF FLAG NO
[2024-09-18 14:56] LABS: Basophils Absolute Auto 0.1 X10*3/uL (0.0-0.2); Basophils Percent Auto 0.6 % (0-2); Eosinophils Absolute Auto 0.4 X10*3/uL (0.0-0.4); Eosinophils Percent Auto 2.5 % (0-4); Hematocrit 42.4 % (37.0-47.0); Hemoglobin 13.8 g/dl (12.0-16.0); Imm Gran Abs Auto 0.06 X10*3/uL (0.00-0.03); Imm Gran Pct Auto 0.4 % (0.0-0.4); Lymphocytes Absolute Auto 2.4 X10*3/uL (1.2-4.9); Lymphocytes Percent Auto 15.3 % (20-40); Mean Corpuscular HGB Conc 32.5 g/dl (31.0-35.0); Mean Corpuscular Hemoglobin 28.2 pg (27.0-33.0); Mean Corpuscular Volume 86.5 fL (80.0-98.0); Mean Platelet Volume 9.8 fL (9.4-12.3); Monocytes Absolute Auto 1.1 X10*3/uL (0.1-1.2); Monocytes Percent Auto 6.7 % (2-11); Neutrophils Absolute Auto 11.7 x10*3/uL (2.0-8.3); Neutrophils Percent Auto 74.5 % (45-73); Platelet Count 423 X10*3/uL (160-400); Red Cell Distribution Width 13.6 % (11.0-16.0); White Blood Count 15.7 X10*3/uL (4.8-10.8)
[2024-09-18 15:38] LABS: Appearance Urine Clear; Color Urine Yellow; Glucose Urine UA Negative (Negative); Leukocyte Esterase Urine Negative (Negative); Nitrite Urine Negative (Negative); Specific Gravity - Urine 1.015 (1.005-1.025); Urine Blood Negative (Negative); Urine Ketones Trace mg/dL (Negative); Urine Protein Negative (Neg-Trace)
[2024-09-18 16:50] LABS: Alanine Aminotransferase 15 U/L (0-31); Albumin Level 4.7 g/dL (3.5-5.0); Alkaline Phosphatase 107 U/L (39-117); Anion Gap 12 (12-20); Aspartate Amino Transferase 16 U/L (5-31); Bilirubin Total 0.3 mg/dL (0.0-1.0); Blood Urea Nitrogen 7 mg/dL (9-16); Calcium 9.5 mg/dL (8.4-10.2); Carbon Dioxide 25 mmol/L (22-29); Chloride 105 mmol/L (96-108); Cholesterol 180 mg/dL (<200); Estimated Glomerular Filt Rate > 60; Glucose Fasting 85 mg/dL (60-99); HDL Cholesterol 44 mg/dL (>40); LDL Cholesterol Calculated 121 mg/dL (<100); Potassium 3.8 mmol/L (3.3-5.1); Sodium 138 mmol/L (135-145); Total Protein 8.2 g/dL (6.5-8.0); Triglycerides 76 mg/dL (<150)
[2024-09-18 17:00] LABS: TSH reflex Free T4 1.43 uIU/mL (0.32-4.0)
== END 2024-09-18 14:39 | disposition home or self-care (01) ==
LOC: HO.LAB 14:38
PROVIDERS: PCP Internal Medicine; Visit Provider Internal Medicine
DX: Z00.00 Encounter for general adult medical examination without abnormal findings (principal); E78.00 Pure hypercholesterolemia, unspecified; R30.0 Dysuria; D64.9 Anemia, unspecified; E55.9 Vitamin D deficiency, unspecified
CPT/HCPCS: 36415; 80053; 80061; 81003; 82306; 84443; 85025